=== PATIENT | female | born 1945 ===

== ENCOUNTER 2017-07-16 13:40 | Emergency (ER) | payer MEDICAID ==
[2017-07-16 14:33] VITALS: O2SAT 98; BMI 30.4
[2017-07-16] MEDS ORDERED: Morphine 4 mg/ml ISec IVP STA (15:12)
[2017-07-16] MEDS ORDERED: Sodium Chloride 0.9% 1,000 ML IV STA (15:12)
--- NOTE | 2017-07-16 15:18 | ED PDOC ---
Arrival/HPI - General Chief Complaint: Abdominal Pain Time Seen by Provider: 07/16/17 15:12 Historian: Patient, Family (daughter/daughter translating) - History of Present Illness Narrative History of Present Illness (Text): 07/16/17 15:15 pt p/w + ~ 5days onset of epigastric pain, radiating to mid back and up to pt's back/shoulder regions at times; pt states abd pain is constant with waxing/ waning behavior, at most pain is rated > 10/10; pt + poor appetite, + severe nausea and multiple episodes of vomiting since 3 days ago, vomited ~ 3-4 times daily; pt states + feeling subjective warmth/cold, no sweats, no cp/sob/ palpitations, no numbness/tingling, no urinary/bowel changes, no gross bleeding ; pt is here for further eval; pt's without other complaints pt denied fall/trauma/sick contact, no travel coordinator states her current abd pain does not feel like her prior GB disease pain pt had seen GI, had endoscopy/colonoscopy, dx with H Pylori was txt with abx PCP: dr Joe Bunch Time/Duration: < week Symptom Onset: Sudden Symptom Course: Unchanged, Worsening Quality: Cramping Severity Level: 10, Severe Activities at Onset: Rest Context: Home Past Medical History - Provider Review Nursing Documentation Reviewed: Yes - Travel History Have you recently traveled outside [place] w/in the past 3 mons?: No - Past History Past History: No Previous - Infectious Disease Hx of Infectious Diseases: None - Tetanus Immunization Tetanus Immunization: Unknown - Cardiac Hx Cardiac Disorders: Yes Hx Hypertension: Yes - Pulmonary Hx Respiratory Disorders: No - Neurological Hx Neurological Disorder: Yes Hx Dizziness: Yes Other/Comment: FORGETFUL - HEENT Hx HEENT Disorder: Yes Hx Cataracts: Yes - Renal Hx Renal Disorder: No - Endocrine/Metabolic Hx Endocrine Disorders: Yes Hx Hypothyroidism: Yes - Hematological/Oncological Hx Blood Disorders: Yes Hx Anemia: Yes Hx Blood Transfusions: No Hx Cancer: Yes (gallbladder) - Integumentary Hx Dermatological Disorder: No - Musculoskeletal/Rheumatological Hx Musculoskeletal Disorders: Yes Hx Arthritis: Yes Hx Falls: No Hx Fractures: No - Gastrointestinal Hx Gastrointestinal Disorders: Yes Hx Gall Bladder Disease: Yes Hx Gastritis: Yes Hx Gastroesophageal Reflux: Yes Hx Hemorrhoids: Yes Hx Liver Failure: Yes (LIVER RESECTION) Other/Comment: gallbladder ca - Genitourinary/Gynecological Hx Genitourinary Disorders: Yes Hx Urinary Tract Infection: Yes Other/Comment: CYSTOCELE WITH INCONTINENCE - Psychiatric Hx Psychophysiologic Disorder: Yes Hx Anxiety: Yes Hx Depression: Yes Hx Emotional Abuse: No Hx Physical Abuse: No Hx Substance Use: No - Past Surgical History Past Surgical History: No Previous - Surgical History Hx Cataract Extraction: Yes (both eyes.) Hx Cholecystectomy: Yes Hx Liver Transplant: No Hx Tubal Ligation: Yes Other/Comment: partial hepatolectomy. COLPORRHAPHY WITH SLING - Anesthesia Hx Anesthesia: Yes Hx Anesthesia Reactions: No Hx Malignant Hyperthermia: No - Suicidal Assessment Feels Threatened In Home Enviroment: No Family/Social History - Physician Review Nursing Documentation Reviewed: Yes Family/Social History: No Known Family HX Smoking Status: Never Smoked Hx Alcohol Use: No Hx Substance Use: No Hx Substance Use Treatment: No Allergies/Home Meds Allergies/Adverse Reactions: Allergies aspirin Allergy (Verified 07/16/17 14:33) SWELLING Home Medications: Home Meds Medication Instructions Recorded Confirmed Levothyroxine Sodium 50 mcg PO DAILY 02/15/14 07/16/17 amLODIPine [Norvasc] 5 mg PO DAILY 02/15/14 07/16/17 Donepezil HCl [Aricept Odt] 5 mg PO DAILY 06/13/15 07/16/17 Atorvastatin [Lipitor] 40 mg PO DAILY 08/26/15 07/16/17 Valsartan [Diovan] 320 mg PO DAILY 08/26/15 07/16/17 Zolpidem [Ambien] 5 mg PO HS PRN 08/26/15 07/16/17 Calcium/D3/Argnin/Inos/Silicon 600 mg PO DAILY 03/23/16 07/16/17 [Bone Density Calcium + D Cplt] Citalopram [celeXA] 10 mg PO DAILY 03/23/16 07/16/17 Gabapentin [Neurontin] 300 mg PO DAILY 12/13/16 07/16/17 Montelukast [Singulair] 10 mg PO HS 12/13/16 07/16/17 Review of Systems - Review of Systems Constitutional: Fatigue Eyes: Normal ENT: Normal Respiratory: Normal Cardiovascular: Normal Gastrointestinal: Abdominal Pain, Nausea, Vomiting, Appetite Changes. absent: Diarrhea Genitourinary Female: Normal Musculoskeletal: Normal Skin: Normal Neurological: Normal Endocrine: Normal Hemo/Lymphatic: Normal Psychiatric: Normal Physical Exam Vital Signs Reviewed: Yes Vital Signs Temp Pulse Resp BP Pulse Ox 07/16/17 14:30 98.3 F 63 16 128/79 98 Temperature: Afebrile Blood Pressure: Normal Pulse: Regular Respiratory Rate: Normal Appearance: Positive for: Well-Appearing, Other (uncomfortable, mild distress due to pain, alert/awake, GCS = 15, oriented x 3, cooperative, follows command with ease) Pain Distress: Mild Mental Status: Positive for: Alert and Oriented X 3 - Systems Exam Head: Present: Atraumatic, Normocephalic Pupils: Present: PERRL, Other (no photophobia, sclera anicteric, no nystagmus) Extroacular Muscles: Present: EOMI Conjunctiva: Present: Normal Ears: Present: Normal Mouth: Present: Dry, Normal Teeth, Other (mild dry oral mucosa, intact dentitions, no drooling/stridor, no exudate/lesions, no dysphonia) Pharnyx: Present: Normal Nose (External): Present: Atraumatic Nose (Internal): Present: Normal Inspection Neck: Present: Normal Range of Motion, Trachea Midline. No: MIDLINE TENDERNESS Respiratory/Chest: Present: Clear to Auscultation, Good Air Exchange, Other ( CTA b/l, no w/r/r, no accessory muscle use noted, no tachypenia) Cardiovascular: Present: Regular Rate and Rhythm, Normal S1, S2. No: Murmurs Abdomen: Present: Tenderness, Normal Bowel Sounds, Other (well nourished female , + mid/epigastric region tenderness, no bass's sign, no mcburney's point tenderness, no masses/rebound/guarding/rigidity) Back: Present: Normal Inspection, Other (no midline tenderness, no step off). No: CVA Tenderness Upper Extremity: Present: Normal Inspection, Normal ROM, NORMAL PULSES, Neurovascularly Intact, Capillary Refill < 2s Lower Extremity: Present: Normal Inspection, NORMAL PULSES, Normal ROM, Neurovascularly Intact, Capillary Refill < 2 s Neurological: Present: GCS=15, CN II-XII Intact, Speech Normal Skin: Present: Warm, Normal Color, Other (cap refill < 1sec, no ulcerations, no petechiae). No: Rashes Psychiatric: Present: Alert, Oriented x 3 Medical Decision Making ED Course and Treatment: 07/16/17 15:21 Impression: epigastric pain i have consider all the differential diagnosis regarding pt's chief medical complaints/clinical findings, including but are not limited to: epigastric pain , r/o free air, r/o pancreatitis, r/o choledocholethiasis, unlikely bowel dz, ? pna; unlikely cards pathology A/P: epigastric pain - labs - iv - xray - ct - ua - observe - supportive care 07/16/17 [address] results pt is feeling improved, stating abd pain is much more tolerable pt is hungry pt tolerated po 20:00 pt is made aware of her medical results pt is encouraged bland diet pt is encouraged fluids pt will f/u as directed pt will be discharged home Re-evaluation Time: 20:00 Reassessment Condition: Improved - Lab Interpretations Lab Results: 07/16/17 15:20 07/16/17 15:20 Lab Results 07/16/17 15:20: Sodium 141, Potassium 4.7, Chloride 102, Carbon Dioxide 29, Anion Gap 15, BUN 16, Creatinine 0.9, Est GFR ( Amer) > 60, Est GFR (Non- Af Amer) > 60, Random Glucose 105, Calcium 10.4, Total Bilirubin 0.4, AST 34, ALT 42, Alkaline Phosphatase 59, Troponin I < 0.01, Total Protein 8.0, Albumin 4.6, Globulin 3.4, Albumin/Globulin Ratio 1.3, Lipase 263 07/16/17 15:20: PT 10.9, INR 0.96, APTT 31.5 07/16/17 15:20: WBC 7.8 D, RBC 4.65, Hgb 14.7, Hct 44.3, MCV 95.3, MCH 31.6, MCHC 33.2, RDW 12.7, Plt Count 184, MPV 11.2 H, Gran % 63.7, Lymph % (Auto) 24.8 , Mathews % (Auto) 7.7 H, Eos % (Auto) 3.5, Baso % (Auto) 0.3, Gran # 4.98, Lymph # (Auto) 1.9, Mathews # (Auto) 0.6, Eos # (Auto) 0.3, Baso # (Auto) 0.02 I have reviewed the lab results: Yes Interpretation: All labs normal - RAD Interpretation Narrative RAD Interpretations (Text): 07/16/17 18:17 CXR: NAD, as read by me 07/16/17 20:20 CT Scan ABD PELVIS IV CONTRAST ONLY Exam Date: 07/16/17 This imaging exam was performed at [facility] EXAM: CT Abdomen and Pelvis With Intravenous Contrast EXAM DATE/TIME: 07/16/2017 3:13 PM CLINICAL HISTORY: 71 years old, female; Pain; Abdominal pain; Epigastric; Prior surgery; Surgery date: 6+ months; Surgery type: HX liver resection, HX cholecystectomy, HX tubal ligation; Patient HX: HX gallbladder ca; Additional info: Epigastric pain x 5 days, n/v, HX of gb surgery TECHNIQUE: Axial computed tomography images of the abdomen and pelvis with intravenous contrast. All CT scans at this facility use one or more dose reduction techniques, viz.: automated exposure control; ma/kV adjustment per patient size (including targeted exams where dose is matched to indication; i.e. head); or iterative reconstruction technique. Coronal and sagittal reformatted images were created and reviewed. CONTRAST: 100 mL of omnipaque 350 administered intravenously. COMPARISON: Prior CT abdomen and pelvis of 2017-04-06 FINDINGS: LOWER THORAX: Heart again appears moderately enlarged. ABDOMEN: LIVER: Fatty infiltration of the liver. GALLBLADDER AND BILE DUCTS: Gallbladder is not seen, and there is a reported history of cholecystectomy. No evidence of significant biliary ductal dilatation. PANCREAS: No CT evidence of acute pancreatitis. SPLEEN: No acute abnormality of the spleen identified. ADRENALS: No acute abnormality of the adrenal glands identified. KIDNEYS AND URETERS: Left renal scarring. Incidental multiple fluid density left renal lesions, all measuring less than 10 mm. Consistent with the [employer]?s Incidental Findings Committee Report (J Am Eduar Radiol 2010): Unless the patient?s specific circumstances suggest otherwise, any cystic kidney lesion less than 1.0 cm not otherwise characterized in this report as possessing suspicious or indeterminate imaging features is/are highly likely to be benign and do not require follow-up imaging or biopsy. No evidence of hydroureteronephrosis. STOMACH AND BOWEL: Focal wall thickening of the distal stomach, suspicious for focal gastritis versus artifact from incomplete gastric distention. Retained stool noted throughout the colon. Otherwise, no significant abnormality of the bowel is identified. No evidence of gastric dilatation. No evidence of bowel obstruction. APPENDIX: Appendix is seen, and is within normal limits in appearance. PELVIS: BLADDER: No acute abnormality of the bladder identified. REPRODUCTIVE: Small 1.8 cm left ovarian/adnexal cystic lesion, also seen on the prior exam. This has a benign appearance by CT. No followup is warranted based on the imaging findings, unless otherwise clinically indicated. No acute abnormality of the uterus identified. ABDOMEN and PELVIS: INTRAPERITONEAL SPACE: No evidence of free intraperitoneal air or fluid. BONES/JOINTS: Bony structures appear demineralized. SOFT TISSUES: No acute abnormality of the visualized soft tissues is seen. VASCULATURE: No evidence of abdominal aortic aneurysm. No evidence of periaortic hemorrhage. LYMPH NODES: No evidence of diffuse lymphadenopathy. IMPRESSION: - Wall thickening of the distal stomach, suspicious for focal gastritis. - Otherwise, no evidence of significant acute process. - See above for remaining findings. Dictated By: Mai Aquino MD Dictated Date/Time: 07/16/171947 Signed By: Mai Aquino MD Date Signed: 1948 Transcribed By: LIZBETH Transcribe Date/Time : 07/16/171947 Radiology Orders: 07/16/17 15:13 ABD & PELVIS IV CONTRAST ONLY [CT] Stat CHEST TWO VIEWS (PA/LAT) [RAD] Stat Staff [employer] Officer: ED Physician, Radiologist - EKG Interpretation EKG Interpretation (Text): 07/16/17 18:06 Sinus rhythm at 60 bpm, LAD, + ectopy, qs in leads V1-2, no st-t changes, ABNL EKG; unchanged compare with old EKG 03/2017 Interpreted by ED Physician: Yes Type: 12 lead EKG Comparison: Similar to previous EKG - Medication Orders Current Medication Orders: Sodium Chloride (Sodium Chloride 0.9%) 1,000 mls @ 100 mls/hr IV .Q10H STA Stop: 07/17/17 01:11 Last Admin: 07/16/17 15:28 Dose: 100 mls/hr eMAR Start Stop Document 07/16/17 15:28 GMI (Rec: 07/16/17 15:28 GMI [id number]) Intravenous Solution Start Date 07/16/17 Start Time 15:27 Discontinued Medications Famotidine (Pepcid) 20 mg IVP STAT STA Stop: 07/16/17 15:13 Last Admin: 07/16/17 15:27 Dose: 20 mg IVP Administration Document 07/16/17 15:27 GMI (Rec: 07/16/17 15:26 I [id number]) Charges for Administration # of IVP Administrations 1 Morphine Sulfate (Morphine) 4 mg IVP STAT STA Stop: 07/16/17 15:13 Last Admin: 07/16/17 15:26 Dose: 4 mg MAR Pain Assessment Document 07/16/17 15:26 GMI (Rec: 07/16/17 15:26 GMI [id number]) Pain Reassessment Is this a pain reassessment? Yes Presence of Pain Presence of Pain Yes Pain Scale Used Pain Scale Used Numeric Location Pain Location Body Site Abdomen Description Description Constant Intensity of Pain at present 8 Pain Behavior Facial Grimacing IVP Administration Document 07/16/17 15:26 GMI (Rec: 07/16/17 15:26 GMI [id number]) Charges for Administration # of IVP Administrations 1 Ondansetron HCl (Zofran Inj) 4 mg IVP STAT STA Stop: 07/16/17 15:13 Last Admin: 07/16/17 15:27 Dose: 4 mg IVP Administration Document 07/16/17 15:27 GMI (Rec: 07/16/17 15:27 GMI [id number]) Charges for Administration # of IVP Administrations 1 Disposition/Present on Arrival - Present on Arrival Any Indicators Present on Arrival: No History of DVT/PE: No History of Uncontrolled Diabetes: No Urinary Catheter: No History of Decub. Ulcer: No History Surgical Site Infection Following: None - Disposition Have Diagnosis and Disposition been Completed?: Yes Diagnosis: Gastritis, Epigastric abdominal pain Disposition: HOME/ ROUTINE Disposition Time: 20:12 Patient Plan: Discharge Condition: STABLE Discharge Instructions (ExitCare): Gastritis (DC), Nausea and Vomiting, Adult ( DC), [place] Diet Print Language: MACEDONIAN Additional Instructions: Make sure to see your doctor in 1-2 days make sure to see your Gastroenterologists next week BLAND DIET is encouraged DRINK PLENTY OF FLUIDS take your medications as prescribed RETURN TO ED IF worse pain, cant breath, persistent vomiting, high fever >101- 102 for hours, altered behavior, unable to urinate, heavy/persistent bleeding, passing out, chest pain, or other medical emergencies Prescriptions: Famotidine [Pepcid] 20 mg PO BID #30 tab Ondansetron ODT [Zofran ODT] 4 mg PO TID PRN #10 odt PRN Reason: Nausea/Vomiting oxyCODONE/Acetaminophen [Percocet 5/325 mg Tab] 1 ea PO QID PRN #12 tab PRN Reason: Pain, Moderate (4-7) Referrals: Eber Bunch MD [Primary Care Provider] - Follow up with primary Forms: [employer] ([place]ian)
[2017-07-16 15:32] LABS: BASO # 0.02 K/mm3 (0.0-2.0); BASO % 0.3 % (0.0-3.0); EOS # 0.3 (0.0-0.7); EOS % 3.5 % (1.5-5.0); GRAN # 4.98 (1.4-6.5); GRAN % 63.7 % (50.0-68.0); HEMOGLOBIN 14.7 g/dL (12.0-16.0); LYMPH # 1.9 (1.2-3.4); LYMPH % 24.8 % (22.0-35.0); MEAN CELL VOLUME 95.3 fl (80.0-105.0); MEAN CORPUSCULAR HEMOGLOBIN 31.6 pg (25.0-35.0); MEAN CORPUSCULAR HGB CONC 33.2 g/dl (31.0-37.0); MEAN PLATELET VOLUME 11.2 fl (7.0-11.0); MONO # 0.6 (0.1-0.6); MONO % 7.7 % (1.0-6.0); RBC 4.65 10^6/uL (3.5-6.1); RED CELL DISTRIBUTION WIDTH 12.7 % (11.5-14.5); WHITE BLOOD COUNT 7.8 10^3/ul (4.5-11.0)
[2017-07-16 15:46] LABS: INR 0.96 (0.93-1.08); PARTIAL THROMBOPLASTIN TIME 31.5 Seconds (25.1-36.5); PROTHROMBIN TIME 10.9 SECONDS (9.4-12.5)
[2017-07-16 15:54] LABS: ALB/GLOB RATIO 1.3 (1.1-1.8); ALBUMIN 4.6 g/dL (3.0-4.8); ALT/SGPT 42 U/L (7-56); AST/SGOT 34 U/L (14-36); BLOOD UREA NITROGEN 16 mg/dL (7-21); CALCIUM 10.4 mg/dL (8.4-10.5); GFR AFRICAN-AMERICAN > 60; GFR NON-AFRICAN AMERICAN > 60; LIPASE 263 U/L (23-300)
[2017-07-16 16:05] LABS: TROPONIN I < 0.01 ng/mL
[2017-07-16] MEDS ORDERED: Iohexol 350 MG/100 ML VIAL ONE (16:24)
--- NOTE | 2017-07-16 19:48 | CT ---
EXAM: CT Abdomen and Pelvis With Intravenous Contrast EXAM DATE/TIME: 07/16/2017 3:13 PM CLINICAL HISTORY: 71 years old, female; Pain; Abdominal pain; Epigastric; Prior surgery; Surgery date: 6+ months; Surgery type: HX liver resection, HX cholecystectomy, HX tubal ligation; Patient HX: HX gallbladder ca; Additional info: Epigastric pain x 5 days, n/v, HX of gb surgery TECHNIQUE: Axial computed tomography images of the abdomen and pelvis with intravenous contrast. All CT scans at this facility use one or more dose reduction techniques, viz.: automated exposure control; ma/kV adjustment per patient size (including targeted exams where dose is matched to indication; i.e. head); or iterative reconstruction technique. Coronal and sagittal reformatted images were created and reviewed. CONTRAST: 100 mL of omnipaque 350 administered intravenously. COMPARISON: Prior CT abdomen and pelvis of 2017-04-06 FINDINGS: LOWER THORAX: Heart again appears moderately enlarged. ABDOMEN: LIVER: Fatty infiltration of the liver. GALLBLADDER AND BILE DUCTS: Gallbladder is not seen, and there is a reported history of cholecystectomy. No evidence of significant biliary ductal dilatation. PANCREAS: No CT evidence of acute pancreatitis. SPLEEN: No acute abnormality of the spleen identified. ADRENALS: No acute abnormality of the adrenal glands identified. KIDNEYS AND URETERS: Left renal scarring. Incidental multiple fluid density left renal lesions, all measuring less than 10 mm. Consistent with the [employer]?s Incidental Findings Committee Report (J Am Eduar Radiol 2010): Unless the patient?s specific circumstances suggest otherwise, any cystic kidney lesion less than 1.0 cm not otherwise characterized in this report as possessing suspicious or indeterminate imaging features is/are highly likely to be benign and do not require follow-up imaging or biopsy. No evidence of hydroureteronephrosis. STOMACH AND BOWEL: Focal wall thickening of the distal stomach, suspicious for focal gastritis versus artifact from incomplete gastric distention. Retained stool noted throughout the colon. Otherwise, no significant abnormality of the bowel is identified. No evidence of gastric dilatation. No evidence of bowel obstruction. APPENDIX: Appendix is seen, and is within normal limits in appearance. PELVIS: BLADDER: No acute abnormality of the bladder identified. REPRODUCTIVE: Small 1.8 cm left ovarian/adnexal cystic lesion, also seen on the prior exam. This has a benign appearance by CT. No followup is warranted based on the imaging findings, unless otherwise clinically indicated. No acute abnormality of the uterus identified. ABDOMEN and PELVIS: INTRAPERITONEAL SPACE: No evidence of free intraperitoneal air or fluid. BONES/JOINTS: Bony structures appear demineralized. SOFT TISSUES: No acute abnormality of the visualized soft tissues is seen. VASCULATURE: No evidence of abdominal aortic aneurysm. No evidence of periaortic hemorrhage. LYMPH NODES: No evidence of diffuse lymphadenopathy. IMPRESSION: - Wall thickening of the distal stomach, suspicious for focal gastritis. - Otherwise, no evidence of significant acute process. - See above for remaining findings.
[2017-07-16 20:51] VITALS: BP 131/68; PULSE 60; RESP 17; TEMP 98.2
--- NOTE | 2017-07-17 08:40 | CARD ---
APPROVED REPORT EKG Measurement Heart [id number] [place] 150P [id number] <Conclusion> Sinus rhythm with PVC LAD IRBBB ASMI, new since 04/06/17 NSSTW changes
--- NOTE | 2017-07-17 09:51 | RAD ---
HISTORY: epigastric pain COMPARISON: Comparison made with chest radiograph 04/06/2017. TECHNIQUE: Chest PA and lateral FINDINGS: LUNGS: No active pulmonary disease. PLEURA: No significant pleural effusion identified. No pneumothorax apparent. CARDIOVASCULAR: Cardiomegaly. OSSEOUS STRUCTURES: No significant abnormalities. VISUALIZED UPPER ABDOMEN: Normal. OTHER FINDINGS: None. IMPRESSION: Cardiomegaly. No infiltrates seen.
== END 2017-07-16 20:51 | disposition home or self-care (01) ==
LOC: ED 13:40
DX: K29.70 Gastritis, unspecified, without bleeding (principal)
CPT/HCPCS: 71046; 74177; 80053; 83690; 84484; 85025; 85610; 85730; 93005; 96374; 96375; 99283; J2270; J2405; J7040; Q9967

== ENCOUNTER 2018-09-17 15:04 | Emergency (ER) | payer MEDICAID ==
[2018-09-17 15:04] VITALS: BMI 30.4
--- NOTE | 2018-09-17 15:21 | ED PDOC ---
Arrival/HPI <IgorAngelito - Last Filed: 09/17/18 17:50> - History of Present Illness Narrative History of Present Illness (Text): 09/17/18 15:19 Patient is a 73 year old female with past medical history of asthma, hypertension, hyperlipidemia, hypothyroidism, GERD, gallbladder neuroendocrine carcinoma s/p cholecystectomy presenting with chief complaint of shortness of breath which began about 4 days prior. Patient has been having multiple nighttime awakenings due to being short of breath. Also admits to productive cough with clear sputum and localized midsternal chest discomfort which is worsened with cough. Patient is exposed to secondhand smoke frequently. Denies fevers, chills, nausea, vomiting, abdominal pain, diarrhea, dysuria. Time/Duration: < week Symptom Onset: Sudden Symptom Course: Unchanged Severity Level: Moderate <Rima Leung - Last Filed: 09/17/18 18:34> - General Time Seen by Provider: 09/17/18 15:13 Past Medical History - Provider Review Nursing Documentation Reviewed: Yes - Past History Past History: No Previous - Infectious Disease Hx of Infectious Diseases: None - Tetanus Immunization Tetanus Immunization: Unknown - Reproductive Menopause: No - Cardiac Hx Cardiac Disorders: Yes Hx Hypertension: Yes - Pulmonary Hx Respiratory Disorders: No - Neurological Hx Neurological Disorder: Yes Hx Dizziness: Yes Other/Comment: FORGETFUL - HEENT Hx HEENT Disorder: Yes Hx Cataracts: Yes - Renal Hx Renal Disorder: No - Endocrine/Metabolic Hx Endocrine Disorders: Yes Hx Hypothyroidism: Yes - Hematological/Oncological Hx Blood Disorders: Yes Hx Anemia: Yes Hx Blood Transfusions: No Hx Cancer: Yes (gallbladder) - Integumentary Hx Dermatological Disorder: No - Musculoskeletal/Rheumatological Hx Musculoskeletal Disorders: Yes Hx Arthritis: Yes Hx Falls: No Hx Fractures: No - Gastrointestinal Hx Gastrointestinal Disorders: Yes Hx Gall Bladder Disease: Yes Hx Gastritis: Yes Hx Gastroesophageal Reflux: Yes Hx Hemorrhoids: Yes Hx Liver Failure: Yes (LIVER RESECTION) Other/Comment: gallbladder ca - Genitourinary/Gynecological Hx Genitourinary Disorders: Yes Hx Urinary Tract Infection: Yes Other/Comment: CYSTOCELE WITH INCONTINENCE - Psychiatric Hx Psychophysiologic Disorder: Yes Hx Anxiety: Yes Hx Depression: Yes Hx Emotional Abuse: No Hx Physical Abuse: No Hx Substance Use: No - Past Surgical History Past Surgical History: No Previous - Surgical History Hx Cataract Extraction: Yes (both eyes.) Hx Cholecystectomy: Yes Hx Liver Transplant: No Hx Tubal Ligation: Yes Other/Comment: partial hepatolectomy. COLPORRHAPHY WITH SLING - Anesthesia Hx Anesthesia: Yes Hx Anesthesia Reactions: No Hx Malignant Hyperthermia: No - Suicidal Assessment Feels Threatened In Home Enviroment: No <LeungBreanntramaine Villeda - Last Filed: 09/17/18 18:34> Family/Social History - Physician Review Nursing Documentation Reviewed: Yes Family/Social History: No Known Family HX Smoking Status: Never Smoked Hx Alcohol Use: No Hx Substance Use: No Hx Substance Use Treatment: No <Rima Leung - Last Filed: 09/17/18 18:34> Allergies/Home Meds <Angelito Costa - Last Filed: 09/17/18 17:50> <Rima Leung - Last Filed: 09/17/18 18:34> Allergies/Adverse Reactions: Allergies aspirin Allergy (Verified 07/16/17 14:33) SWELLING Home Medications: Home Meds Medication Instructions Recorded Confirmed Levothyroxine Sodium 50 mcg PO DAILY 02/15/14 07/16/17 amLODIPine [Norvasc] 5 mg PO DAILY 02/15/14 09/17/18 Donepezil HCl [Aricept Odt] 5 mg PO DAILY 06/13/15 07/16/17 Atorvastatin [Lipitor] 40 mg PO DAILY 08/26/15 07/16/17 Zolpidem [Ambien] 5 mg PO HS PRN 08/26/15 07/16/17 Calcium/D3/Argnin/Inos/Silicon 600 mg PO DAILY 03/23/16 07/16/17 [Bone Density Calcium + D Cplt] Citalopram [celeXA] 10 mg PO DAILY 03/23/16 07/16/17 Gabapentin [Neurontin] 300 mg PO DAILY 12/13/16 07/16/17 Montelukast [Singulair] 10 mg PO HS 12/13/16 07/16/17 Review of Systems - Physician Review All systems were reviewed & negative as marked: Yes - Review of Systems Respiratory: SOB, Cough, Wheezing Cardiovascular: Chest Pain Gastrointestinal: Normal Genitourinary Female: Normal <Rima Leung - Last Filed: 09/17/18 18:34> Physical Exam Vital Signs Temp Pulse Resp BP Pulse Ox 09/17/18 15:12 98.7 F 70 20 133/60 95 09/17/18 15:05 65 18 133/60 97 <Angelito Costa - Last Filed: 09/17/18 17:50> Vital Signs Reviewed: Yes Vital Signs Temp Pulse Resp BP Pulse Ox 09/17/18 15:12 98.7 F 70 20 133/60 95 Temperature: Afebrile Blood Pressure: Normal Pulse: Regular Respiratory Rate: Normal Appearance: Positive for: Non-Toxic Pain Distress: None Mental Status: Positive for: Alert and Oriented X 3 - Systems Exam Head: Present: Atraumatic, Normocephalic Pupils: Present: PERRL Extroacular Muscles: Present: EOMI Conjunctiva: Present: Normal Mouth: Present: Moist Mucous Membranes Pharnyx: Present: Normal Respiratory/Chest: Present: Wheezes. No: Respiratory Distress, Accessory Muscle Use Cardiovascular: Present: Regular Rate and Rhythm, Normal S1, S2 Abdomen: Present: Normal Bowel Sounds. No: Tenderness, Distention Lower Extremity: Present: Normal Inspection, NORMAL PULSES. No: Edema Neurological: Present: GCS=15, CN II-XII Intact, Speech Normal Skin: Present: Warm, Dry, Normal Color Lymphatic: No: Cervical Adenopathy Psychiatric: Present: Alert, Oriented x 3 <Rima Leung - Last Filed: 09/17/18 18:34> Medical Decision Making - RAD Interpretation Radiology Orders: 09/17/18 15:40 CHEST PORTABLE [RAD] Stat - EKG Interpretation EKG Interpretation (Text): 09/17/18 16:01 EKG reviewed: Atrial fibrillation at 66 bpm, nonspecific intraventricular cond uction delay, None sttw abn. Interpreted by ED Physician: Yes Type: 12 lead EKG - Medication Orders Current Medication Orders: Discontinued Medications Albuterol/Ipratropium (Duoneb 3 Mg/0.5 Mg (3 Ml) Ud) 3 ml IH STAT STA Stop: 09/17/18 15:41 Prednisone (Prednisone Tab) 60 mg PO STAT ONE Stop: 09/17/18 15:41 <Angelito Costa - Last Filed: 09/17/18 17:50> ED Course and Treatment: 09/17/18 15:57 Impression: 73 year old female with shortness of breath Plan: - CBC, CMP, BNP - Troponin, EKG - CXR - Duonebs - Prednisone - Reassess and disposition Prior Visits: Notes and results from previous visits were reviewed. Progress Notes: 09/17/18 17:24 Labs and imaging reviewed. Patient states she is feeling much better. Patient hemodynamically stable and optimized for discharge and follow up with PMD. Patient in agreement with plan of management. <Rima Leung - Last Filed: 09/17/18 18:34> - PA / DISTRIBUTION CENTER ADMINISTRATOR / Resident Statement MD/DO has reviewed & agrees with the documentation as recorded. - Scribe Statement The provider has reviewed the documentation as recorded by the Scribe Nelda Tenorio All medical record entries made by the Scribe were at my direction and personally dictated by me. I have reviewed the chart and agree that the record accurately reflects my personal performance of the history, physical exam, medical decision making, and the department course for this patient. I have also personally directed, reviewed, and agree with the discharge instructions and disposition. <Angelito Costa - Last Filed: 09/17/18 17:50> Disposition/Present on Arrival - Present on Arrival Any Indicators Present on Arrival: No - Disposition Have Diagnosis and Disposition been Completed?: Yes Disposition Time: 17:50 Patient Plan: Discharge <Angelito Costa - Last Filed: 09/17/18 17:50> - Present on Arrival History of DVT/PE: No History of Uncontrolled Diabetes: No Urinary Catheter: No History of Decub. Ulcer: No History Surgical Site Infection Following: None <Rima Leung - Last Filed: 09/17/18 18:34> - Disposition Diagnosis: Asthma exacerbation Disposition: HOME/ ROUTINE Condition: STABLE Discharge Instructions (ExitCare): Asthma, Adult (DC) Print Language: SPA Additional Instructions: return for any new or worsening symptoms. follow up with your primary care doctor as soon as possible. Prescriptions: Albuterol 0.5% [Albuterol 0.5% Inhal Felisa (2.5 mg/0.5 ml) UD] 0.25 ml IH Q4H #1 neb Benzonatate [Tessalon Perles] 100 mg PO TID PRN #15 sgl PRN Reason: Cough Prednisone [Deltasone] 20 mg PO DAILY 5 Days #10 tablet Referrals: Eber Bunch MD [Primary Care Provider] - Follow up with primary Forms: [employer] ([place])
[2018-09-17 15:25] VITALS: TEMP 98.7; O2SAT 95
[2018-09-17] MEDS ORDERED: Magnesium Sulfate 2 gm/50 ml 2 GM/50 ML BAG IVPB ONE (15:40)
[2018-09-17] MEDS ORDERED: Albuterol-Ipratrop 3 mg / 0.5 (3 ml) UD IH STA (15:40)
[2018-09-17 16:07] LABS: BASO # 0.03 K/mm3 (0.0-2.0); BASO % 0.5 % (0.0-3.0); EOS # 0.3 (0.0-0.7); HEMOGLOBIN 12.1 g/dL (12.0-16.0); LYMPH # 1.9 (1.2-3.4); LYMPH % 28.3 % (22.0-35.0); MEAN CELL VOLUME 96.4 fl (80.0-105.0); MEAN CORPUSCULAR HEMOGLOBIN 30.9 pg (25.0-35.0); MEAN CORPUSCULAR HGB CONC 32.1 g/dl (31.0-37.0); MEAN PLATELET VOLUME 11.8 fl (7.0-11.0); MONO % 15.5 % (1.0-6.0); RBC 3.91 10^6/uL (3.5-6.1); RED CELL DISTRIBUTION WIDTH 14.4 % (11.5-14.5); WHITE BLOOD COUNT 6.6 10^3/uL (4.5-11.0)
[2018-09-17 16:19] LABS: TROPONIN I < 0.01 ng/mL
[2018-09-17 16:22] LABS: ALB/GLOB RATIO 1.3 (1.1-1.8); ALBUMIN 3.9 g/dL (3.0-4.8); ALT/SGPT 28 U/L (7-56); AST/SGOT 33 U/L (14-36); B-TYPE NATRIURETIC PEPTIDE 542 pg/mL (0-450); BLOOD UREA NITROGEN 5 mg/dL (7-21); CALCIUM 8.6 mg/dL (8.4-10.5); GFR NON-AFRICAN AMERICAN > 60
[2018-09-17] MEDS ORDERED: guaiFENesin DM 200 mg-20 mg/10 ml UD PO ONE (17:24)
[2018-09-17 17:51] VITALS: BP 133/69; PULSE 65; RESP 18
--- NOTE | 2018-09-18 06:11 | RAD ---
Date of service: 09/17/2018 HISTORY: shortness of breath COMPARISON: Comparison is made with 07/16/2017 TECHNIQUE: 1 view obtained. FINDINGS: LUNGS: Mild pulmonary vascular congestion is suspected. PLEURA: Blunting of the right costophrenic angle is noted. CARDIOVASCULAR: Small aortic atherosclerotic calcification present. The cardiac silhouette is mildly enlarged P . OSSEOUS STRUCTURES: No significant abnormalities. VISUALIZED UPPER ABDOMEN: Normal. OTHER FINDINGS: None. IMPRESSION: Mild pulmonary vascular congestion. Correlate clinically for CHF.
--- NOTE | 2018-09-18 19:12 | CARD ---
APPROVED REPORT Date of service: 09/17/2018 EKG Measurement Heart [id number] <Conclusion> Normal sinus rhythm Left axis deviation Nonspecific intraventricular conduction delay Poor R wave progression in Precordial leads Abnormal ECG
== END 2018-09-17 18:05 | disposition home or self-care (01) ==
LOC: ED 15:04
DX: J45.901 Unspecified asthma with (acute) exacerbation (principal); E78.5 Hyperlipidemia, unspecified; E03.9 Hypothyroidism, unspecified; I10 Essential (primary) hypertension

== ENCOUNTER 2018-09-24 15:42 | Observation (INO) | payer MEDICAID ==
--- NOTE | 2018-09-24 17:15 | ED PDOC ---
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 Patient states since yesterday she has vomited more than 8 times. Patient states the pain is sharp and stabbing and intermittent located mostly epigastric and left upper quadrant. Patient denies diarrhea. Denies back pain. Denies shortness of breath at present time. Patient states she has a history of asthma and was seen in the emergency room 1 week ago for asthma exacerbation which finally improved 2 days ago. Patient states she has had decreased appetite for the past few days. Patient denies dysuria urinary frequency or urgency. No vaginal bleeding or discharge. No medications have been taken for pain at home. No other complaints Past Medical History - Provider Review Nursing Documentation Reviewed: Yes - Travel History Have you recently traveled outside [place] w/in the past 3 mons?: No - Past History Past History: No Previous - Infectious Disease Hx of Infectious Diseases: None - Tetanus Immunization Tetanus Immunization: Unknown - Reproductive Menopause: Yes - Cardiac Hx Cardiac Disorders: Yes Hx Hypertension: Yes - Pulmonary Hx Respiratory Disorders: No - Neurological Hx Neurological Disorder: Yes Hx Dizziness: Yes Other/Comment: FORGETFUL - HEENT Hx HEENT Disorder: Yes Hx Cataracts: Yes - Renal Hx Renal Disorder: No - Endocrine/Metabolic Hx Endocrine Disorders: Yes Hx Hypothyroidism: Yes - Hematological/Oncological Hx Blood Disorders: Yes Hx Anemia: Yes Hx Blood Transfusions: No Hx Cancer: Yes (gallbladder) - Integumentary Hx Dermatological Disorder: No - Musculoskeletal/Rheumatological Hx Musculoskeletal Disorders: Yes Hx Arthritis: Yes Hx Falls: No Hx Fractures: No - Gastrointestinal Hx Gastrointestinal Disorders: Yes Hx Gall Bladder Disease: Yes Hx Gastritis: Yes Hx Gastroesophageal Reflux: Yes Hx Hemorrhoids: Yes Hx Liver Failure: Yes (LIVER RESECTION) Other/Comment: gallbladder ca - Genitourinary/Gynecological Hx Genitourinary Disorders: Yes Hx Urinary Tract Infection: Yes Other/Comment: CYSTOCELE WITH INCONTINENCE - Psychiatric Hx Psychophysiologic Disorder: Yes Hx Anxiety: Yes Hx Depression: Yes Hx Emotional Abuse: No Hx Physical Abuse: No Hx Substance Use: No - Past Surgical History Past Surgical History: No Previous - Surgical History Hx Cataract Extraction: Yes (both eyes.) Hx Cholecystectomy: Yes Hx Liver Transplant: No Hx Tubal Ligation: Yes Other/Comment: partial hepatolectomy. COLPORRHAPHY WITH SLING - Anesthesia Hx Anesthesia: Yes Hx Anesthesia Reactions: No Hx Malignant Hyperthermia: No - Suicidal Assessment Feels Threatened In Home Enviroment: No Family/Social History - Physician Review Nursing Documentation Reviewed: Yes Family/Social History: Unknown Family HX Smoking Status: Never Smoked Hx Alcohol Use: No Hx Substance Use: No Hx Substance Use Treatment: No Allergies/Home Meds Allergies/Adverse Reactions: Allergies aspirin Allergy (Verified 09/24/18 15:56) SWELLING Home Medications: Home Meds Medication Instructions Recorded Confirmed Levothyroxine Sodium 50 mcg PO DAILY 02/15/14 09/24/18 amLODIPine [Norvasc] 5 mg PO DAILY 02/15/14 09/24/18 Donepezil HCl [Aricept Odt] 5 mg PO DAILY 06/13/15 09/24/18 Atorvastatin [Lipitor] 40 mg PO DAILY 08/26/15 09/24/18 Citalopram Hydrobromide [Celexa] 1 tab PO DAILY 09/24/18 09/24/18 Losartan [Cozaar] 100 mg PO DAILY 09/24/18 09/24/18 Omeprazole 40 mg PO DAILY 09/24/18 09/24/18 Review of Systems - Review of Systems Constitutional: Fatigue. absent: Fevers Respiratory: absent: SOB, Cough Cardiovascular: Chest Pain. absent: Palpitations Gastrointestinal: Abdominal Pain, Diarrhea, Nausea, Vomiting Genitourinary Female: absent: Dysuria, Frequency, Hematuria, Vaginal Bleeding, Vaginal Discharge Musculoskeletal: Arthralgias (right arm pain). absent: Back Pain, Neck Pain Skin: absent: Rash, Pruritis Neurological: absent: Headache, Dizziness Psychiatric: absent: Anxiety, Depression Physical Exam Vital Signs Reviewed: Yes Vital Signs Temp Pulse Resp BP Pulse Ox 09/24/18 15:49 97.4 F L 53 L 18 151/74 H 95 Temperature: Afebrile Blood Pressure: Hypertensive Pulse: Regular Respiratory Rate: Normal Appearance: Positive for: Well-Appearing, Non-Toxic, Comfortable Pain Distress: None Mental Status: Positive for: Alert and Oriented X 3 - Systems Exam Head: Present: Atraumatic Mouth: Present: Moist Mucous Membranes Respiratory/Chest: Present: Clear to Auscultation Cardiovascular: Present: Regular Rate and Rhythm Abdomen: Present: Tenderness (+ epigastric, ruq/ luq tenderness), Guarding. No: Distention, Rebound Back: Present: Normal Inspection. No: CVA Tenderness, Midline Tenderness, Paraspinal Tenderness Upper Extremity: Present: Normal ROM Lower Extremity: Present: Normal ROM Neurological: Present: GCS=15, Speech Normal Skin: Present: Warm, Dry, Normal Color. No: Rashes Psychiatric: Present: Alert Medical Decision Making ED Course and Treatment: 09/24/18 17:12 Patient is nontoxic well appearing with stable vital signs presenting with upper abdominal pain, nausea/vomiting/diarrhea. CBC: wnl CMP Wnl Lipase wnl EKG: Sinus bradycardia at [address] elevations, left axis deviation, QTC 400 trop; 0.02 BNP; elevated cxr; wnl Urinalysis wnL CAT scan: FINDINGS: LUNG BASES: The lung bases appear clear. No pleural effusions are seen. LIVER: Unremarkable. GALLBLADDER AND BILE DUCTS: The gallbladder appears within normal limits. No radioopaque gallstones are seen. No biliary ductal dilatation is evident. PANCREAS: Unremarkable. SPLEEN: Unremarkable. ADRENAL GLANDS: Unremarkable. KIDNEYS, URETERS, AND BLADDER: The kidneys appear within normal limits. There is no hydronephrosis or hydroureter. No urinary calculi are seen. STOMACH AND BOWEL: Unremarkable appearance of the stomach and bowel. No evidence of bowel obstruction. No evidence suggesting enteritis or colitis. APPENDIX: No evidence of acute appendicitis on CT examination. PERITONEUM: Small amount of pelvic free fluid. No free air. LYMPH NODES: No lymphadenopathy is evident. REPRODUCTIVE: Unremarkable as visualized. VASCULATURE: No evidence of abdominal aortic aneurysm. BONES: No aggressive appearing osseous lesion. No acute osseous pathology evident. IMPRESSION: Small amount of pelvic free fluid No additional acute intra-abdominal or pelvic abnormality. Electronically signed on Sep 24, 2018 6:17:45 PM EDT by: Lanie Cardenas M.D., Certified by [facility], Diagnostic Radiology Patient reassessment: pt resting comfortably. ASA not given as patient has allergic reaction to ASA. Discussed all results with patient in depth using line producer phone banker #; [phone] pts PMD is dr. corbett, will admit to hospitalist service. case discussed with dr. Bajwa; accepts obs admission to tele for Chest pain and abdominal pain, nausea/vomiting. Impression: chest pain, Abdominal pain, nausea/vomiting admit obs tele - RAD Interpretation Radiology Orders: 09/24/18 16:50 CHEST PORTABLE [RAD] Stat Disposition/Present on Arrival - Present on Arrival Any Indicators Present on Arrival: No History of DVT/PE: No History of Uncontrolled Diabetes: No Urinary Catheter: No History of Decub. Ulcer: No History Surgical Site Infection Following: None - Disposition Have Diagnosis and Disposition been Completed?: Yes Diagnosis: Abdominal pain, Chest pain, Elevated brain natriuretic peptide (BNP) level Disposition Time: 18:55 Patient Plan: Observation Patient Problems: Current Active Problems Problem Status Onset Abdominal pain Acute Chest pain Acute Elevated brain natriuretic peptide (BNP) level Acute Condition: FAIR Discharge Instructions (ExitCare): Chest Pain (ED) Forms: [employer] ([place])
--- NOTE | 2018-09-24 17:35 | RAD ---
Date of service: 09/24/2018 HISTORY: chest pain/abd pain, n/v COMPARISON: Chest radiograph dated 09/17/2018. TECHNIQUE: 1 view obtained. FINDINGS: LUNGS: No active pulmonary disease. PLEURA: No significant pleural effusion identified, no pneumothorax apparent. CARDIOVASCULAR: Aortic atherosclerotic calcifications. Cardiomediastinal silhouette stably enlarged. OSSEOUS STRUCTURES: Unchanged. VISUALIZED UPPER ABDOMEN: Normal. OTHER FINDINGS: None. IMPRESSION: No active disease.
[2018-09-24 17:36] LABS: BASO # 0.01 {null, K/mm3} (0.0-2.0); BASO % 0.1 % (0.0-3.0); HEMOGLOBIN 13.6 g/dL (12.0-16.0); LYMPH # 1.2 (1.2-3.4); LYMPH % 13.4 % (22.0-35.0); MEAN CELL VOLUME 95.9 fl (80.0-105.0); MEAN CORPUSCULAR HEMOGLOBIN 30.9 pg (25.0-35.0); MEAN CORPUSCULAR HGB CONC 32.2 g/dl (31.0-37.0); MEAN PLATELET VOLUME 11.5 fl (7.0-11.0); MONO # 0.2 (0.1-0.6); MONO % 2.2 % (1.0-6.0); PH,URINE 8.5 (4.7-8.0); RBC 4.4 {null, 10^6/uL} (3.5-6.1); RED CELL DISTRIBUTION WIDTH 13.9 % (11.5-14.5); URINE BILIRUBIN NEGATIVE (NEGATIVE); URINE BLOOD NEGATIVE (NEGATIVE); URINE GLUCOSE (UA) NEGATIVE (NEGATIVE); URINE LEUKOCYTE ESTERASE NEGATIVE Leu/uL (NEGATIVE); URINE PROTEIN NEGATIVE mg/dL (<30 mg/dL); URINE UROBILINOGEN 0.2 E.U./dL (<1 E.U./dL); WHITE BLOOD COUNT 8.8 {null, 10^3/uL} (4.5-11.0)
[2018-09-24 17:39] LABS: URINE APPEARANCE CLEAR (CLEAR); URINE COLOR YELLOW (YELLOW)
[2018-09-24 17:48] LABS: ALB/GLOB RATIO 1.4 (1.1-1.8); ALBUMIN 4.4 g/dL (3.0-4.8); ALT/SGPT 47 U/L (7-56); AST/SGOT 37 U/L (14-36); BLOOD UREA NITROGEN 9 mg/dL (7-21); CALCIUM 8.9 mg/dL (8.4-10.5); GFR NON-AFRICAN AMERICAN > 60
[2018-09-24 17:56] LABS: B-TYPE NATRIURETIC PEPTIDE 692 pg/mL (0-450); TROPONIN I 0.02 ng/mL
[2018-09-24] MEDS ORDERED: Iohexol 350 MG/100 ML VIAL ONE (17:58)
[2018-09-24] MEDS ORDERED: Morphine 2 mg/ml ISec IVP STA (18:33)
[2018-09-24] MEDS ORDERED: Sodium Chloride 0.9% 500 ML IV STA (18:34)
[2018-09-24] MEDS: Sodium Chloride 0.9% 500 ML IV SCH (19:29)
--- NOTE | 2018-09-24 20:10 | CP.PCM.HP ---
<Collins Walker - Last Filed: 09/24/18 21:41> History of Present Illness - History of Present Illness History of Present Illness: Collins Walker PGy1 - Internal Medicine [employer] - Hospitalist H&P CC: Abd pain/ Chest Pain Patient is a 73F w/ PMH of gallbladder CA, Asthma, HTN, HLD, Hypothyroid c/o N/V abd pain and chest pain. Patient report symptoms began 1 day ago; she reported 10 episodes of NBNB vomitus associated w/ epigastric abdominal pain. Pain is distributed in a band like pattern in the epigastric region w/o radiation into the back; Patient reports that the pain is a sharp stabbing sensation which comes and goes lasting approximately 2 hours. Patient reports that this is the first time she's experiencing these symptoms; denies pain w/ eating. She does however report a de creased appetite. In regards to chest pain, patient reports that pain is located on the R side of her chest w/ radiation into her right arm and right neck; patient complains that pain is worsened w/ walking an dimproved w/ sitting. She reports that she is fatigued throughout the day and does have complaints of HARRY. Patient states that at night she requires multiple pillows and sleeps in an inclined position. Does not complain of of cough, bloating/distention, or LE edema. Denies any diarrhea, constipation, palpitations, dizziness, lightheadedness, fevers chills. Remainder 12 system ROS negative. PMH: gallbladder CA, Asthma, HTN, HLD, Hypothyroid PSH: cholecystectomy, bladder surgery ALL: ASA - GI Upset - NO ANAPHYLAXIS Social: Denies smoking, drinking, illicit drugs FamHX: CAD in mother and father- both HomeRx: Norvasc 5 Daily, Lipitor 40 daily, Celexa 20 daily, Donepezil 5 daily, synthroid 50mcg daily, cozaar 100 daily Present on Admission - Present on Admission Any Indicators Present on Admission: No Review of Systems - Review of Systems All systems: reviewed and no additional remarkable complaints except Review of Systems: as per HPI Past Patient History - Infectious Disease Hx of Infectious Diseases: None - Tetanus Immunizations Tetanus Immunization: Unknown - Past Medical History & Family History Past Medical History?: Yes - Past Social History Smoking Status: Never Smoked - CARDIAC Hx Cardiac Disorders: Yes Hx Hypertension: Yes - PULMONARY Hx Respiratory Disorders: No - NEUROLOGICAL Hx Neurological Disorder: Yes Hx Dizziness: Yes Other/Comment: FORGETFUL - HEENT Hx HEENT Problems: Yes Hx Cataracts: Yes - RENAL Hx Chronic Kidney Disease: No - ENDOCRINE/METABOLIC Hx Endocrine Disorders: Yes Hx Hypothyroidism: Yes - HEMATOLOGICAL/ONCOLOGICAL Hx Blood Disorders: Yes Hx Anemia: Yes Hx Blood Transfusions: No Hx Cancer: Yes (gallbladder) - INTEGUMENTARY Hx Dermatological Problems: No - MUSCULOSKELETAL/RHEUMATOLOGICAL Hx Musculoskeletal Disorders: Yes Hx Arthritis: Yes Hx Falls: No Hx Fractures: No - GASTROINTESTINAL Hx Gastrointestinal Disorders: Yes Hx Gall Bladder Disease: Yes Hx Gastritis: Yes Hx Gastroesophageal Reflux: Yes Hx Hemorrhoids: Yes Hx Liver Failure: Yes (LIVER RESECTION) Other/Comment: gallbladder ca - GENITOURINARY/GYNECOLOGICAL Hx Genitourinary Disorders: Yes Hx Urinary Tract Infection: Yes Other/Comment: CYSTOCELE WITH INCONTINENCE - PSYCHIATRIC Hx Psychophysiologic Disorder: Yes Hx Anxiety: Yes Hx Depression: Yes Hx Emotional Abuse: No Hx Physical Abuse: No Hx Substance Use: No - SURGICAL HISTORY Hx Cataract Extraction: Yes (both eyes.) Hx Cholecystectomy: Yes Hx Liver Transplant: No Hx Tubal Ligation: Yes Other/Comment: partial hepatolectomy. COLPORRHAPHY WITH SLING - ANESTHESIA Hx Anesthesia: Yes Hx Anesthesia Reactions: No Hx Malignant Hyperthermia: No Meds Allergies/Adverse Reactions: Allergies Allergy/AdvReac Type Severity Reaction Status Date / Time aspirin Allergy SWELLING Verified 09/24/18 15:56 Physical Exam - Constitutional Appears: Well, Non-toxic, No Acute Distress - Head Exam Head Exam: ATRAUMATIC, NORMOCEPHALIC - Eye Exam Eye Exam: EOMI, Normal appearance, PERRL - Respiratory Exam Respiratory Exam: Clear to Auscultation Bilateral, NORMAL BREATHING PATTERN - Cardiovascular Exam Cardiovascular Exam: RRR. absent: Systolic Murmur - GI/Abdominal Exam GI & Abdominal Exam: Soft, Tenderness (Epigastric tenderness) Additional comments: No rebound, guarding, or bass's sign - Back Exam Back exam: absent: CVA tenderness (L), CVA tenderness (R) - Neurological Exam Neurological exam: Alert, Normal Gait, Oriented x3 - Psychiatric Exam Psychiatric exam: Normal Affect, Normal Mood - Skin Skin Exam: Dry, Intact, Normal Color, Warm Results - Vital Signs Recent Vital Signs: Last Vital Signs Temp 97.4 F L 09/24/18 15:49 Pulse 52 L 09/24/18 18:22 Resp 15 09/24/18 18:22 BP 133/60 09/24/18 18:22 Pulse Ox 96 09/24/18 18:22 - Labs Result Diagrams: 09/24/18 17:00 09/24/18 17:00 Labs: Laboratory Results - last 24 hr 09/24/18 09/24/18 09/24/18 17:00 17:00 17:00 WBC 8.8 D RBC 4.40 Hgb 13.6 Hct 42.2 MCV 95.9 MCH 30.9 MCHC 32.2 RDW 13.9 Plt Count 212 MPV 11.5 H Neut % (Auto) 84.3 H Lymph % (Auto) 13.4 L Willacy % (Auto) 2.2 Eos % (Auto) 0.0 L Baso % (Auto) 0.1 Lymph # (Auto) 1.2 Willacy # (Auto) 0.2 Eos # (Auto) 0.0 Baso # (Auto) 0.01 Absolute Neuts (auto) 7.39 H Sodium 140 Potassium 4.0 Chloride 102 Carbon Dioxide 31 Anion Gap 11 BUN 9 Creatinine 0.6 L Est GFR ( Amer) > 60 Est GFR (Non-Af Amer) > 60 Random Glucose 207 H Calcium 8.9 Total Bilirubin 0.5 AST 37 H ALT 47 Alkaline Phosphatase 74 Lactate Dehydrogenase 708 H Total Creatine Kinase 45 Troponin I 0.02 D NT-Pro-B Natriuret Pep 692 H Total Protein 7.6 Albumin 4.4 Globulin 3.2 Albumin/Globulin Ratio 1.4 Urine Color Yellow Urine Appearance Clear Urine pH 8.5 Ur Specific Baxter 1.015 Urine Protein Negative Urine Glucose (UA) Negative Urine Ketones Negative Urine Blood Negative Urine Nitrate Negative Urine Bilirubin Negative Urine Urobilinogen 0.2 Ur Leukocyte Esterase Negative Assessment & Plan - Assessment and Plan (Free Text) Assessment: Patient is a 73F w/ PMH of gallbladder CA, Asthma, HTN, HLD, Hypothyroid c/o N/V abd pain and chest pain. Admitted for ACS r/o and management of pain. Plan: ACS r/o Heart Score = 3 ; MACE 0.9-1.7% EKG sinus winston, non specific intraventricular conduction delay; HR 51; no ST/T wave abnormalities Prev Regular Stress Test 2013 - Within Normal Limits; no ischemia Trop 0.02 Trend Trop x3 Repeat EKG in AM Lipid Profile wnl A1C Pending TSH Pending No ASA 2/2 "allergy" Resume Lipitor BNP Elevated - will get echo Cardio Consulted, appreciate reccs Abd Pain - R/o Pancreatitis CTAP wnl LDH elevated; No WBC elevation Lipase pending CLD ; IVF NS conservative - 60cc/hr Morphin 1 Q4 PRN Severe pain Acetaminophen 650mg Q4 Mild pain Zofran Q4 PRN Protonix IVP 40 Daily Hx Hypothyroid TSH Pending Levothyroxine 50mcg Hx HTN Resume home: Norvasc 5 daily, Cozaar 100 daily DVT PPX: Lovenox GI PPX: Protonix Patient was seen examined discussed w/ attending Dr. Garett Walker DO PGY1 - Internal Medicine [employer] - Date & Time Date: 09/24/18 Time: 22:06 <Moris Bajwa - Last Filed: 09/27/18 04:20> Results - Vital Signs Recent Vital Signs: Last Vital Signs Temp 97.9 F 09/25/18 23:49 Pulse 54 L 09/26/18 14:00 Resp 18 09/25/18 23:49 BP 148/69 09/26/18 13:13 Pulse Ox 94 L 09/25/18 23:49 - Labs Result Diagrams: 09/26/18 07:00 09/26/18 07:00 Labs: Laboratory Results - last 24 hr 09/26/18 09/26/18 07:00 07:00 WBC 7.6 RBC 4.34 Hgb 13.3 Hct 41.5 MCV 95.6 MCH 30.6 MCHC 32.0 RDW 13.7 Plt Count 214 MPV 11.4 H Neut % (Auto) 51.7 Lymph % (Auto) 35.8 H Willacy % (Auto) 10.0 H Eos % (Auto) 2.0 Baso % (Auto) 0.5 Lymph # (Auto) 2.7 Willacy # (Auto) 0.8 H Eos # (Auto) 0.2 Baso # (Auto) 0.04 Absolute Neuts (auto) 3.92 Sodium 138 Potassium 3.8 Chloride 102 Carbon Dioxide 30 Anion Gap 10 BUN 7 Creatinine 0.7 Est GFR ( Amer) > 60 Est GFR (Non-Af Amer) > 60 Random Glucose 81 Calcium 8.1 L Total Bilirubin 0.5 AST 35 ALT 38 Alkaline Phosphatase 67 Total Protein 6.8 Albumin 3.8 Globulin 3.0 Albumin/Globulin Ratio 1.3 Attending/Attestation - Attestation I have personally seen and examined this patient.: Yes I have fully participated in the care of the patient.: Yes I have reviewed all pertinent clinical information: Yes
[2018-09-24] MEDS ORDERED: Morphine 2 mg/ml ISec IVP PRN (20:48)
[2018-09-24 21:25] LABS: HDL CHOLESTEROL 73 mg/dL (29-60); LIPASE 177 U/L (23-300)
[2018-09-24 21:36] LABS: LDL CHOLESTEROL 60 mg/dL (0-129)
[2018-09-25 02:26] VITALS: BMI 41.3
[2018-09-25] MEDS: Sodium Chloride 0.9% 500 ML IV SCH ×2 (06:13→13:32)
[2018-09-25 07:19] LABS: BASO # 0.02 {null, K/mm3} (0.0-2.0); BASO % 0.2 % (0.0-3.0); EOS % 0.4 % (1.5-5.0); HEMOGLOBIN 12.8 g/dL (12.0-16.0); LYMPH # 3.2 (1.2-3.4); LYMPH % 34.2 % (22.0-35.0); MEAN CORPUSCULAR HEMOGLOBIN 30.3 pg (25.0-35.0); MEAN CORPUSCULAR HGB CONC 31.6 g/dl (31.0-37.0); MEAN PLATELET VOLUME 11.7 fl (7.0-11.0); MONO # 0.9 (0.1-0.6); MONO % 9.8 % (1.0-6.0); RBC 4.22 {null, 10^6/uL} (3.5-6.1); WHITE BLOOD COUNT 9.3 {null, 10^3/uL} (4.5-11.0)
[2018-09-25 07:25] LABS: TROPONIN I 0.02 ng/mL
[2018-09-25 07:26] LABS: ALB/GLOB RATIO 1.3 (1.1-1.8); ALT/SGPT 41 U/L (7-56); AST/SGOT 34 U/L (14-36); BLOOD UREA NITROGEN 8 mg/dL (7-21); CALCIUM 8.5 mg/dL (8.4-10.5); GFR NON-AFRICAN AMERICAN > 60
[2018-09-25] MEDS: Levothyroxine 50 MCG TAB PO SCH (08:35)
--- NOTE | 2018-09-25 08:54 | CT ---
Date of service: 09/24/2018 PROCEDURE: CT Abdomen and Pelvis with contrast HISTORY: abd pain COMPARISON: 07/16/2017 TECHNIQUE: Contrast dose: 100 mL Omnipaque 350 Radiation dose: Total exam DLP = 784.38 mGy-cm. This CT exam was performed using one or more of the following dose reduction techniques: Automated exposure control, adjustment of the mA and/or kV according to patient size, and/or use of iterative reconstruction technique. FINDINGS: LOWER THORAX: Unremarkable. LIVER: Unremarkable. No gross lesion or ductal dilatation. GALLBLADDER AND BILE DUCTS: Status post cholecystectomy PANCREAS: Unremarkable. No gross lesion or ductal dilatation. SPLEEN: Unremarkable. ADRENALS: Unremarkable. No mass. KIDNEYS AND URETERS: Unremarkable. No hydronephrosis. No solid mass. VASCULATURE: Unremarkable. No aortic aneurysm. There is atherosclerotic calcification of the abdominal aorta. BOWEL: Unremarkable. No obstruction. No gross mural thickening. APPENDIX: Normal appendix. PERITONEUM: Small amount of fluid in the pelvis common nonspecific. LYMPH NODES: Unremarkable. No enlarged lymph nodes. BLADDER: Unremarkable. REPRODUCTIVE: Unremarkable uterus BONES: No acute fracture. OTHER FINDINGS: None. IMPRESSION: Small amount of fluid in pelvis common nonspecific. No additional abnormality. Status post cholecystectomy. The preliminary findings for this examination were reported by [facility] at 6:17 p.m. on 09/24/2018. There is concurrence of this report with the preliminary findings.
[2018-09-25] MEDS: Enoxaparin 40 mg Syringe SC SCH (09:22)
[2018-09-25] MEDS ORDERED: Potassium Chloride 20 mEq ER Tab PO ONE (09:23)
--- NOTE | 2018-09-25 09:38 | CARD ---
APPROVED REPORT Date of service: 09/24/2018 EKG Measurement Heart [id number] <Conclusion> Sinus bradycardia Left axis deviation Nonspecific intraventricular conduction delay Abnormal ECG
[2018-09-25] MEDS ORDERED: DONEPEZIL HCL 5 MG PO SCH (10:00)
--- NOTE | 2018-09-25 10:10 | CARD ---
APPROVED REPORT Date of service: 09/25/2018 EKG Measurement Heart [id number] 172P [id number] <Conclusion> Marked sinus bradycardia Left axis deviation Nonspecific intraventricular conduction delay Abnormal ECG
[2018-09-25] MEDS: POLYETHYLENE GLYCOL 3350 17 GM/Dose PACKET PO SCH ×2 (11:41→17:04)
--- NOTE | 2018-09-25 12:17 | CP.PCM.PN ---
<Froy Goel - Last Filed: 09/25/18 12:12> Subjective - Date & Time of Evaluation Date of Evaluation: 09/25/18 Time of Evaluation: 12:13 - Subjective Subjective: Froy Goel, PGY-1, Internal Medicine Progress Note for Dr. Willingham Patient seen and evaluated at bedside. Patient had no acute overnight events. Patient continues to complain of epigastric pain and nausea but denies any episodes of vomiting overnight. Patient also reports chest pain radiating to the right arm. Patient denies shortness of breath, change in bowel movements, dysuria, hematuria. 12-point ROS was unremarkable except for what was mentioned above. Objective - Vital Signs/Intake and Output Vital Signs (last 24 hours): Temp Pulse Resp BP Pulse Ox 98.3 F 47 L 20 153/80 H 95 09/25/18 06:00 09/25/18 10:00 09/25/18 06:00 09/25/18 09:23 09/25/18 06:00 Intake and Output: 09/25/18 09/25/18 06:59 18:59 Intake Total 1080 Balance 1080 - Medications Medications: Current Medications Acetaminophen (Tylenol 325mg Tab) 650 mg PO Q4 PRN PRN Reason: Fever >100.4 F Amlodipine Besylate (Norvasc) 5 mg PO DAILY [facility] Last Admin: 09/25/18 09:23 Dose: 5 mg Atorvastatin Calcium (Lipitor) 40 mg PO DAILY [facility] Last Admin: 09/25/18 09:23 Dose: 40 mg Citalopram Hydrobromide (Celexa) 20 mg PO DAILY [facility] Last Admin: 09/25/18 09:25 Dose: 20 mg Docusate Sodium (Colace) 100 mg PO DAILY [facility] Last Admin: 09/25/18 11:40 Dose: Not Given Enoxaparin Sodium (Lovenox) 40 mg SC DAILY [facility]; Protocol Last Admin: 09/25/18 09:22 Dose: 40 mg Sodium Chloride (Sodium Chloride 0.9%) 500 mls @ 60 mls/hr IV .Q8H20M [facility] Last Admin: 09/25/18 06:13 Dose: 60 mls/hr Levothyroxine Sodium (Synthroid) 50 mcg PO ACB [facility] Last Admin: 09/25/18 08:35 Dose: 50 mcg Losartan Potassium (Cozaar) 100 mg PO DAILY [facility] Last Admin: 09/25/18 09:24 Dose: 100 mg Morphine Sulfate (Morphine) 1 mg IVP Q4H PRN PRN Reason: Pain, severe (8-10) Ondansetron HCl (Zofran Inj) 4 mg IVP Q4H PRN PRN Reason: Nausea/Vomiting Last Admin: 09/25/18 09:39 Dose: 4 mg Pantoprazole Sodium (Protonix Inj) 40 mg IVP DAILY [facility] Last Admin: 09/25/18 09:22 Dose: 40 mg Polyethylene Glycol (Miralax) 17 gm PO BID [facility] Last Admin: 09/25/18 11:41 Dose: Not Given - Labs Labs: 09/25/18 06:30 09/25/18 06:30 - Constitutional Appears: Well, Non-toxic, No Acute Distress - Head Exam Head Exam: ATRAUMATIC, NORMAL INSPECTION, NORMOCEPHALIC - Eye Exam Eye Exam: EOMI, PERRL - ENT Exam ENT Exam: Mucous Membranes Moist - Neck Exam Neck Exam: Full ROM, Normal Inspection - Respiratory Exam Respiratory Exam: Clear to Ausculation Bilateral, NORMAL BREATHING PATTERN - Cardiovascular Exam Cardiovascular Exam: REGULAR RHYTHM, RRR, +S1, +S2. absent: Clicks, Gallop, Rubs - GI/Abdominal Exam GI & Abdominal Exam: Soft, Tenderness (diffuse), Normal Bowel Sounds. absent: Distended, Firm, Guarding - Extremities Exam Extremities Exam: Full ROM, Normal Capillary Refill, Normal Inspection - Neurological Exam Neurological Exam: Alert, Awake, CN II-XII Intact, Oriented x3 - Skin Skin Exam: Dry, Intact, Normal Color Assessment and Plan - Assessment and Plan (Free Text) Assessment: 73 year old female with past medical history of gallbladder cancer, gastritis, asthma, hypertension, hyperlipidemia, hypothyroidism presented with nausea, vomiting, abdominal pain, and chest pain. Patient was admitted for ACS rule out and epigastric pain likely secondary to gastritis Plan: Chest pain with ACS rule out -EKGx2: sinus bradycardia with heart rate of 49 on repeat EKG. Patient had sinus rhythm with heart rate of 66 on prior admission -Troponinx3: 0.02,0.01,0.02 -Last stress test in 2013 showed no ischemia -Lipid profile within normal limits -HgbA1c: 6.6 -TSH: 1.47 -Hold ASA secondary to allergy -Continue with lipitor, cozaar -Echocardiogram ordered for mildly elevated BNP. Will follow up results -Patient scheduled for stress test to rule out ischemia Abdominal pain 2/2 to likely gastritis -CT Abdomen and Pelvis 09/24: shows mild edema around pelvis -Patient is afebrile and has no leukocytosis -Lipase unremarkable -No lactic acidosis present. -Patient does not fulfill 2 of 3 criteria for pancreatitis. Doubt pancreatitis -Patient has history of gallbladder cancer and is status post cholecystectomy. Last PET scan in 03/2017 shows no evidence of metastasis -As a result, symptoms are likely secondary to dyspepsia. Continue pantoprazole 40 mg daily -Continue with tylenol 650 mg Q4PRN, morphine 1 mg Q4PRN for pain, zofran 4 mg Q4 for nausea -Consider endoscopy outpatient. History of hypothyroidism -TSH within normal limits -Continue with home levothyroxine History of hypertension -Continue with home norvasc and cozaar Constipation -Started colace, miralax 17 gm BID History of depression -Continue with home celexa DVT prophylaxis: lovenox GI prophylaxis: protonix Patient seen and evaluated with Dr. Willingham. <Casa Willingham - Last Filed: 09/27/18 13:32> Objective - Vital Signs/Intake and Output Vital Signs (last 24 hours): Temp Pulse Resp BP Pulse Ox 97.9 F 54 L 18 148/69 94 L 09/25/18 23:49 09/26/18 14:00 09/25/18 23:49 09/26/18 13:13 09/25/18 23:49 - Labs Labs: 09/26/18 07:00 09/26/18 07:00 Attending/Attestation - Attestation I have personally seen and examined this patient.: Yes I have fully participated in the care of the patient.: Yes I have reviewed all pertinent clinical information, including history, physical exam and plan: Yes Notes (Text): 09/27/18 13:27 Attending note; patient seen and examined with resident. Patient is status post stress test. Alert and awake. Denies any chest pain, shortness of breath Denies any nausea, vomiting. Denies any abdominal pain. Tolerating soft diet. Patient had bowel movement. Patient is a 73 year old female with past medical history of gallbladder cancer, gastritis, asthma, hypertension, hyperlipidemia, hypothyroidism presented with nausea, vomiting, abdominal pain, and chest pain. Patient was admitted for ACS rule out and epigastric pain likely secondary to gastritis. 1. Chest pain; cardiac enzymes negative. Status post stress test. He has discussed with office messenger in detail. Patient will be discharged home today. 2. Abdominal discomfort ;GI evaluation appreciated. CT abdomen and pelvis is negative. 3. Constipation; continue MiraLAX and Colace. 4. Gastritis; continue Protonix and Carafate. Advised to follow-up with GI as outpatient. Patient will be discharged home today. Case discussed with patient's daughter in detail by the bedside. Case discussed with PMD in detail. Patient will follow up with Dr. Bunch upon discharge. Follow-up plan discussed. Addendum; stress test is negative.
[2018-09-25 12:38] VITALS: RESP 18
[2018-09-25 23:50] VITALS: TEMP 97.9; O2SAT 94
--- NOTE | 2018-09-26 02:23 | CON ---
DATE OF CONSULTATION: 09/25/2018 REQUESTING PHYSICIAN: Dr. Abeeb. REASON FOR CONSULTATION: Followup abdominal pain, radiating to the chest, rule out cardiac evaluation. BRIEF CLINICAL HISTORY: This is a 73-year-old female with past medical history significant for hypertension, hypothyroidism, hyperlipidemia, came in with abdominal pain, sometimes radiating to the chest. Cardiology consult was called. The patient denies any chest pain. Daughter is at the bedside. Though the patient speaks Armenian, but clearly mentions no definite history of chest pain on walking, but sometimes she gets short-winded and mild shortness of breath on exertion. Denies any palpitation. PAST MEDICAL HISTORY: Past history significant for hypertension, hyperlipidemia, hypothyroidism, history of gallbladder cancer, and liver disease. PAST SURGICAL HISTORY: Significant for cholecystectomy and bladder surgery and hysterectomy in the past. ALLERGIES: NO KNOWN DRUG ALLERGIES, THOUGH [employer]IN [employer], GETS A GI UPSET. SOCIAL HISTORY: Denies any history of alcohol abuse. FAMILY HISTORY: Noncontributory. CURRENT MEDICATIONS: The patient is taking Norvasc 5 mg daily, Lipitor 40 mg daily, Celexa 20 mg daily, 5 mg daily, Synthroid 50 mcg daily, Cozaar 100 mg daily. REVIEW OF SYSTEMS: As per HPI. PHYSICAL EXAMINATION: Height of the patient 4 feet 11 inches. The patient was 165 pounds, body mass index 32 kg/sq m. VITAL SIGNS: Temperature afebrile, heart rate 52, blood pressure 127/65. HEENT: PERRLA. Extraocular muscles intact. NECK: Supple. No carotid bruits or thyromegaly. CHEST: Clear to auscultation. HEART: S1 and S2 regular. ABDOMEN: Soft. EXTREMITIES: Clubbing and cyanosis, negative. LABORATORY DATA: Blood workup as follows. WBC 9.1, hemoglobin 12.8, hematocrit 40.5, platelet count 209. Chemistry shows sodium 140, potassium 3, chloride 102, carbon dioxide 33, anion gap of 9, BUN , creatinine 0.7. Troponin 0.01 and 0.01 two times negative. EKG shows sinus winston, heart rate 51, left axis deviation. IMPRESSION: A 73-year-old female with past medical history significant for diabetes, hypertension, hyperlipidemia, history of gallbladder cancer status post cholecystectomy, hysterectomy, admitted with abdominal pain that radiated to the chest. So far, chest pain atypical. EKG is pretty benign. So far, no evidence of acute myocardial infarction, but given the multiple history of coronary artery disease, we will get an echo and a stress test, lipid profile, TSH, hemoglobin A1c, further recommendation of the hospital, and we will follow with you. Thank you, Dr. Abebe, for providing the opportunity in taking care of the patient. Stephane De Leon MD
[2018-09-26 07:20] LABS: BASO # 0.04 {null, K/mm3} (0.0-2.0); BASO % 0.5 % (0.0-3.0); EOS # 0.2 (0.0-0.7); HEMOGLOBIN 13.3 g/dL (12.0-16.0); LYMPH # 2.7 (1.2-3.4); LYMPH % 35.8 % (22.0-35.0); MEAN CELL VOLUME 95.6 fl (80.0-105.0); MEAN CORPUSCULAR HEMOGLOBIN 30.6 pg (25.0-35.0); MEAN PLATELET VOLUME 11.4 fl (7.0-11.0); MONO # 0.8 (0.1-0.6); RBC 4.34 {null, 10^6/uL} (3.5-6.1); RED CELL DISTRIBUTION WIDTH 13.7 % (11.5-14.5); WHITE BLOOD COUNT 7.6 {null, 10^3/uL} (4.5-11.0)
[2018-09-26 07:44] LABS: ALB/GLOB RATIO 1.3 (1.1-1.8); ALBUMIN 3.8 g/dL (3.0-4.8); ALT/SGPT 38 U/L (7-56); AST/SGOT 35 U/L (14-36); BLOOD UREA NITROGEN 7 mg/dL (7-21); CALCIUM 8.1 mg/dL (8.4-10.5); GFR NON-AFRICAN AMERICAN > 60
[2018-09-26] MEDS: Levothyroxine 50 MCG TAB PO SCH (08:30)
[2018-09-26] MEDS ORDERED: Bisacodyl 5mg EC Tab PO ONE (09:15)
--- NOTE | 2018-09-26 09:20 | CP.PCM.PN ---
Subjective - Date & Time of Evaluation Date of Evaluation: 09/26/18 Time of Evaluation: 09:17 - Subjective Subjective: Froy Goel, PGY-1, Internal Medicine Progress Note for Dr. Willingham Patient seen and evaluated at bedside. Patient had no acute overnight events. Patient had 3 bowel movements yesterday. She continues to complain of diffuse abdominal pain and nausea, but denies any episodes of vomiting. Patient denies chest pain or right arm pain today. 12-point ROS was unremarkable except for what was mentioned above. Objective - Vital Signs/Intake and Output Vital Signs (last 24 hours): Temp Pulse Resp BP Pulse Ox 97.9 F 48 L 18 117/57 L 94 L 09/25/18 23:49 09/26/18 02:00 09/25/18 23:49 09/25/18 23:49 09/25/18 23:49 Intake and Output: 09/26/18 09/26/18 06:59 18:59 Intake Total 360 Output Total 3 Balance 357 - Medications Medications: Current Medications Acetaminophen (Tylenol 325mg Tab) 650 mg PO Q4 PRN PRN Reason: Fever >100.4 F Amlodipine Besylate (Norvasc) 5 mg PO DAILY [facility] Last Admin: 09/25/18 09:23 Dose: 5 mg Atorvastatin Calcium (Lipitor) 40 mg PO DAILY [facility] Last Admin: 09/25/18 09:23 Dose: 40 mg Bisacodyl (Dulcolax) 5 mg PO ONCE ONE Stop: 09/26/18 09:16 Citalopram Hydrobromide (Celexa) 20 mg PO DAILY [facility] Last Admin: 09/25/18 09:25 Dose: 20 mg Docusate Sodium (Colace) 100 mg PO DAILY [facility] Last Admin: 09/25/18 11:40 Dose: Not Given Enoxaparin Sodium (Lovenox) 40 mg SC DAILY [facility]; Protocol Last Admin: 09/25/18 09:22 Dose: 40 mg Sodium Chloride (Sodium Chloride 0.9%) 500 mls @ 60 mls/hr IV .Q8H20M [facility] Last Admin: 09/25/18 13:32 Dose: Not Given Levothyroxine Sodium (Synthroid) 50 mcg PO ACB [facility] Last Admin: 09/26/18 08:30 Dose: 50 mcg Losartan Potassium (Cozaar) 100 mg PO DAILY [facility] Last Admin: 09/25/18 09:24 Dose: 100 mg Ondansetron HCl (Zofran Inj) 4 mg IVP Q4H PRN PRN Reason: Nausea/Vomiting Last Admin: 09/25/18 09:39 Dose: 4 mg Pantoprazole Sodium (Protonix Inj) 40 mg IVP DAILY [facility] Last Admin: 09/25/18 09:22 Dose: 40 mg Polyethylene Glycol (Miralax) 17 gm PO BID [facility] Last Admin: 09/25/18 17:04 Dose: Not Given - Labs Labs: 09/26/18 07:00 09/26/18 07:00 - Constitutional Appears: Well, Non-toxic, No Acute Distress - Head Exam Head Exam: ATRAUMATIC, NORMAL INSPECTION, NORMOCEPHALIC - Eye Exam Eye Exam: EOMI, PERRL - ENT Exam ENT Exam: Mucous Membranes Moist - Neck Exam Neck Exam: Full ROM, Normal Inspection - Respiratory Exam Respiratory Exam: Clear to Ausculation Bilateral, NORMAL BREATHING PATTERN - Cardiovascular Exam Cardiovascular Exam: REGULAR RHYTHM, RRR, +S1, +S2. absent: Clicks, Gallop, Rubs - GI/Abdominal Exam GI & Abdominal Exam: Soft, Tenderness (diffuse), Normal Bowel Sounds. absent: Distended, Firm, Guarding - Extremities Exam Extremities Exam: Full ROM, Normal Capillary Refill, Normal Inspection - Neurological Exam Neurological Exam: Alert, Awake, CN II-XII Intact, Oriented x3 - Skin Skin Exam: Dry, Intact, Normal Color Assessment and Plan - Assessment and Plan (Free Text) Assessment: 73 year old female with past medical history of gallbladder cancer, gastritis, asthma, hypertension, hyperlipidemia, hypothyroidism presented with nausea, vomiting, abdominal pain, and chest pain. Patient was admitted for ACS rule out and epigastric pain likely secondary to gastritis Plan: Chest pain with ACS rule out -EKGx2: sinus bradycardia with heart rate of 49 on repeat EKG. Patient had sinus rhythm with heart rate of 66 on prior admission -Troponinx3: 0.02,0.01,0.02 -Last stress test in 2013 showed no ischemia -Lipid profile within normal limits -HgbA1c: 6.6 -TSH: 1.47 -Hold ASA secondary to allergy -Continue with lipitor, cozaar -Echocardiogram ordered for mildly elevated BNP. Will follow up results -Patient scheduled for stress test to rule out ischemia Abdominal pain 2/2 to likely gastritis -CT Abdomen and Pelvis 09/24: shows mild edema around pelvis -Patient is afebrile and has no leukocytosis -Lipase unremarkable -No lactic acidosis present. -Patient does not fulfill 2 of 3 criteria for pancreatitis. Doubt pancreatitis -Patient has history of gallbladder cancer and is status post cholecystectomy. Last PET scan in 03/2017 shows no evidence of metastasis -As a result, symptoms are likely secondary to dyspepsia. -Increased protonix to twice a day -Started carafate BID -Continue with tylenol 650 mg Q4PRN, zofran 4 mg Q4 for nausea -Consider endoscopy outpatient -GI, Dr. Berry, consulted for further recommendations. History of hypothyroidism -TSH within normal limits -Continue with home levothyroxine History of hypertension -Continue with home norvasc and cozaar Constipation -Continue colace, miralax 17 gm BID -Patient has now had bowel movements. History of depression -Continue with home celexa DVT prophylaxis: lovenox GI prophylaxis: protonix Patient seen and evaluated with Dr. Willingham.
[2018-09-26] MEDS: POLYETHYLENE GLYCOL 3350 17 GM/Dose PACKET PO SCH (09:31)
[2018-09-26] MEDS ORDERED: Aminophylline 25 mg/ml Inj ONE (09:39)
--- NOTE | 2018-09-26 11:33 | PN ---
DATE: 09/26/2018 REASON FOR CONSULTATION AND FOLLOWUP: Abdominal pain radiating to the chest, cardiac evaluation. SUBJECTIVE: The patient's daughter and son is at bedside. Denies any chest pain, denies any shortness of breath, denies any palpitations, but complains of abdominal pain, on morphine for abdominal pain. The patient is n.p.o. for stress test today. PHYSICAL EXAMINATION: VITAL SIGNS: Temperature afebrile, heart rate 53, blood pressure 117/50. HEENT: PERRLA. Extraocular muscles intact. NECK: Supple. No carotid bruits or thyromegaly. CHEST: Clear to auscultation. HEART: S1, S2. Regular. ABDOMEN: Soft. EXTREMITIES: Clubbing, cyanosis negative. LABORATORY DATA: Blood workup as follows. WBC 7.3, hemoglobin 13, hematocrit 41.5, platelet count 214. Chemistry shows sodium 130, potassium 3, chloride 102, carbon dioxide 30, anion gap of 10, BUN 7, creatinine 0.7. Troponin 0.01 x3, negative. No evidence of acute CA. EKG shows mild sinus bradycardia; otherwise no evidence of acute CA. IMPRESSION: A 73-year-old female with past medical history significant for gallbladder cancer, status post cholecystectomy, history of hypertension, admitted with abdominal pain. Not sure where the chest pain comes from, but the patient denies any chest pain, but the patient admitted with chest pain diagnosis, having multiple history of coronary artery disease, suggest echo and a stress test today. The patient is awaiting to get stress test today. After that, if the patient remains stable, possibly discharge home and consider gastrointestinal workup. We will follow with you. So far, no evidence of acute myocardial infarction. TSH is in the normal limits. LDL 60, HDL 73. Thank you, Dr. Abebe, for providing the opportunity in taking care of the patient, Lexie Chacon. Stephane De Leon MD
--- NOTE | 2018-09-26 12:36 | CARD ---
APPROVED REPORT Date of service: 09/26/2018 EXAM: Two-dimensional and M-mode echocardiogram with Doppler and color Doppler. INDICATION Chest Pain LVFX 2D DIMENSIONS Left Atrium (2D)4.4 (1.6-4.0cm)IVSd1.0 (0.7-1.1cm) LVDd4.2 (3.9-5.9cm)PWd1.1 (0.7-1.1cm) LVDs3.0 (2.5-4.0cm)FS (%) 28.8 % LVEF (%)55.7 (>50%) M-Mode DIMENSIONS Aortic Root2.90 (2.2-3.7cm)Aortic Cusp Exc.1.60 (1.5-2.0cm) Aortic Valve AoV Peak Kdtszjxx678.0cm/Rebecca Peak GR.13mmHg Mitral Valve MV E Mlrzmjgr93.7cm/sMV A Zebhknyq43.9cm/sE/A ratio1.2 TDI Lateral E' Peak V6.82cm/sMedial E' Peak V4.19cm/sE/Lateral E'14.6 E/Medial E'23.8 Pulmonary Valve PV Peak Nouyagco17.7cm/sPV Peak Grad.1mmHg Tricuspid Valve TR Peak Fvduzwhl934jj/sRAP VYOROAVL77ucIvKE Peak Gr.58mmHg [id number] LEFT VENTRICLE The left ventricle is normal size. There is normal left ventricular wall thickness. The left ventricular function is normal.EF-55-60% There is normal LV segmental wall motion. Transmitral Doppler flow pattern is Grade II-pseudonormal filling dynamics. No left ventricle thrombus noted on this study. There is no ventricular septal defect visualized. There is no left ventricular aneurysm. There is no mass noted in the left ventricle. RIGHT VENTRICLE The right ventricle is mildly to moderately dilated. The right ventricle is borderline hypertrophied. Systolic function of RV s borderline reduced. ATRIA The left atrium is moderately dilated. The right atrium is moderately dilated. The interatrial septum is intact with no evidence for an atrial septal defect. AORTIC VALVE The aortic valve is thickened but opens well. There is trace aortic regurgitation. There is no aortic valvular stenosis. There is no aortic valvular vegetation. MITRAL VALVE The mitral valve is thickened but opens well. 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 There is no mitral valve stenosis. There is no evidence of mitral valve prolapse. TRICUSPID VALVE The tricuspid valve leaflets are thickened , but open well. There is moderate to severe tricuspid regurgitation.RVSP-68 mmof Hg. There is moderate to severe pulmonary hypertension. There is no tricuspid valve stenosis. There is no tricuspid valve prolapse or vegetation. PULMONIC VALVE The pulmonary valve is normal in structure. There is trace pulmonic valvular regurgitation. There is no pulmonic valvular stenosis. GREAT VESSELS The aortic root is normal in size. The ascending aorta is normal in size. The pulmonary artery is normal. The IVC is normal in size and collapses >50% with inspiration. PERICARDIAL EFFUSION There is no pleural effusion. There is a trace pericardial effusion. <Conclusion> The left ventricle is normal size. There is normal left ventricular wall thickness. The left ventricular function is normal.EF-55-60% The right ventricle is mildly to moderately dilated. Systolic function of RV s borderline reduced. There is trace aortic regurgitation. Mitral regurgitation is moderate. There is moderate to severe tricuspid regurgitation.RVSP-68 mmof Hg. There is moderate to severe pulmonary hypertension. There is trace pulmonic valvular regurgitation. The IVC is normal in size and collapses >50% with inspiration. There is a trace pericardial effusion. No thrombus or vegetation noted.
[2018-09-26] MEDS: Enoxaparin 40 mg Syringe SC SCH (13:12)
[2018-09-26 13:14] VITALS: BP 148/69
--- NOTE | 2018-09-26 13:32 | CP.PCM.DIS ---
<LawsonmarianneNicole edwardslizzie - Last Filed: 09/26/18 14:59> Provider - Provider Date of Admission: 09/24/18 19:17 Attending physician: Casa Willingham MD Consults: 09/24/18 21:16 Cardiology Consult Routine Comment: Consulting Provider: Stephane Guerra Consulting Physician: Stephane Guerra Reason for Consult: chest pain 09/25/18 02:26 Transition In Care/Readmission Reduction Routine Comment: Physician Instructions: Reason For Exam: admission assessment 09/25/18 02:27 Social Work Referral Routine Comment: admission assessment Physician Instructions: Reason For Exam: cata score 10 09/26/18 09:16 Gastroenterology Consult Routine Comment: Consulting Provider: Wiliam Berry Consulting Physician: Wiliam Berry Reason for Consult: constant abdominal pain, even with resolved constipation Time Spent in preparation of Discharge (in minutes): 60 Hospital Course - Lab Results Lab Results: Most Recent Lab Values WBC 7.6 10^3/uL (4.5-11.0) 09/26/18 07:00 RBC 4.34 10^6/uL (3.5-6.1) 09/26/18 07:00 Hgb 13.3 g/dL (12.0-16.0) 09/26/18 07:00 Hct 41.5 % (36.0-48.0) 09/26/18 07:00 MCV 95.6 fl (80.0-105.0) 09/26/18 07:00 MCH 30.6 pg (25.0-35.0) 09/26/18 07:00 MCHC 32.0 g/dl (31.0-37.0) 09/26/18 07:00 RDW 13.7 % (11.5-14.5) 09/26/18 07:00 Plt Count 214 10^3/uL (120.0-450.0) 09/26/18 07:00 MPV 11.4 fl (7.0-11.0) H 09/26/18 07:00 Neut % (Auto) 51.7 % (50.0-68.0) 09/26/18 07:00 Lymph % (Auto) 35.8 % (22.0-35.0) H 09/26/18 07:00 [place] % (Auto) 10.0 % (1.0-6.0) H 09/26/18 07:00 Eos % (Auto) 2.0 % (1.5-5.0) 09/26/18 07:00 Baso % (Auto) 0.5 % (0.0-3.0) 09/26/18 07:00 Lymph # (Auto) 2.7 (1.2-3.4) 09/26/18 07:00 [place] # (Auto) 0.8 (0.1-0.6) H 09/26/18 07:00 Eos # (Auto) 0.2 (0.0-0.7) 09/26/18 07:00 Baso # (Auto) 0.04 K/mm3 (0.0-2.0) 09/26/18 07:00 Absolute Neuts (auto) 3.92 (1.4-6.5) 09/26/18 07:00 Sodium 138 mmol/L (132-148) 09/26/18 07:00 Potassium 3.8 mmol/L (3.6-5.0) 09/26/18 07:00 Chloride 102 mmol/L (98-107) 09/26/18 07:00 Carbon Dioxide 30 mmol/L (21-33) 09/26/18 07:00 Anion Gap 10 (10-20) 09/26/18 07:00 BUN 7 mg/dL (7-21) 09/26/18 07:00 Creatinine 0.7 mg/dl (0.7-1.2) 09/26/18 07:00 Est GFR ( Amer) > 60 09/26/18 07:00 Est GFR (Non-Af Amer) > 60 09/26/18 07:00 Random Glucose 81 mg/dL (70-110) 09/26/18 07:00 Hemoglobin A1c 6.6 % (4.2-6.5) H 09/24/18 17:00 Calcium 8.1 mg/dL (8.4-10.5) L 09/26/18 07:00 Total Bilirubin 0.5 mg/dL (0.2-1.3) 09/26/18 07:00 AST 35 U/L (14-36) 09/26/18 07:00 ALT 38 U/L (7-56) 09/26/18 07:00 Alkaline Phosphatase 67 U/L (38-126) 09/26/18 07:00 Lactate Dehydrogenase 708 U/L (333-699) H 09/24/18 17:00 Total Creatine Kinase 45 U/L (35-230) 09/24/18 17:00 Troponin I 0.02 ng/mL D 09/25/18 06:30 NT-Pro-B Natriuret Pep 692 pg/mL (0-450) H 09/24/18 17:00 Total Protein 6.8 g/dL (5.8-8.3) 09/26/18 07:00 Albumin 3.8 g/dL (3.0-4.8) 09/26/18 07:00 Globulin 3.0 gm/dL 09/26/18 07:00 Albumin/Globulin Ratio 1.3 (1.1-1.8) 09/26/18 07:00 Triglycerides 102 mg/dL (35-160) 09/24/18 17:00 Cholesterol 154 mg/dL (130-200) 09/24/18 17:00 LDL Cholesterol Direct 60 mg/dL (0-129) 09/24/18 17:00 HDL Cholesterol 73 mg/dL (29-60) H 09/24/18 17:00 Lipase 177 U/L (23-300) 09/24/18 17:00 TSH 3rd Generation 1.47 mIU/mL (0.46-4.68) 09/24/18 17:00 Urine Color Yellow (YELLOW) 09/24/18 17:00 Urine Appearance Clear (CLEAR) 09/24/18 17:00 Urine pH 8.5 (4.7-8.0) 09/24/18 17:00 Ur Specific [place] 1.015 (1.005-1.035) 09/24/18 17:00 Urine Protein Negative mg/dL (<30 mg/dL) 09/24/18 17:00 Urine Glucose (UA) Negative mg/dL (NEGATIVE) 09/24/18 17:00 Urine Ketones Negative mg/dL (NEGATIVE) 09/24/18 17:00 Urine Blood Negative (NEGATIVE) 09/24/18 17:00 Urine Nitrate Negative (NEGATIVE) 09/24/18 17:00 Urine Bilirubin Negative (NEGATIVE) 09/24/18 17:00 Urine Urobilinogen 0.2 E.U./dL (<1 E.U./dL) 09/24/18 17:00 Ur Leukocyte Esterase Negative Nella/uL (NEGATIVE) 09/24/18 17:00 - Hospital Course Hospital Course: Froy Goel, PGY-1, Internal Medicine Discharge Summary for Dr. Willingham 73 year old female with past medical history of gallbladder CA, Asthma, HTN, HLD, Hypothyroid presented with nausea, vomiting, abdominal pain, and chest pain. Patient's symptoms began 3 day prior to presentation. She had increasing number of episodes of vomiting through those three days with 10 episodes of NBNB vomiting the day prior to presentation. Patient reported sharp stabbing pain which came and went lasting approximately two hours. She denies these symptoms were associated with eating, but had a decreased appetite. Her chest pain was on the right side of her chest with radiation into the right arm and neck. Pain was worse with walking and improved with sitting. She felt fatigued throughout the day. Upon admission, EKG was performed for chest pain to rule out ACS. EKG both times showed sinus bradycardia with left axis deviation. Troponinx3 was 0.02, 0.01, and 0.02. HgbA1c was 6.6. TSH was unremarkable. Lipid panel was unremarkable. Patient was started on home lipitor but aspirin was not started due to allergy. Patient was given acetaminophen and morphine for pain which helped alleviate the chest pain. Echocardiogram was performed for mildly elevated BNP and showed LVEF of 55-60%, trace AR, moderate to severe TR with RVSP of 68, moderate to severe pulm HTN, trace OH, trace pericardial effusion. No thrombus or vegetation was seen. Preliminary stress test results showed no signs of ischemia. For patient's abdominal pain, patient has had abdominal pain throughout the admission unchanged in intensity. Patient has also been nauseous but has not had any more episodes of vomiting. Patient was initially constipated but had 3 episodes of bowel movements on 09/25 after given colace and miralax. Abdominal CT on [place] was done which only showed fluid around the pelvis but no acute intraabdominal abnormalities. Patient was initially started on protonix 40 mg daily which was increased to 40 mg IV BID and started on sucralfate with some improvement in abdominal pain. Patient was found to be stable and ready for discharge. Patient was told to follow up with PCP in 3-5 days. Patient was told have PCP refer her to business functional analyst for further evaluation of abdominal pain. Patient was told to take all home medications as prescribed. Patient was told that formal stress test results would be given to her outpatient. Patient was told to take newly prescribed protonix 40 mg daily and sulcralfate 1 gm twice a day. Patient was told to return to the emergency department if you have any new or concerning s ymptoms. Discharge Diagnoses Chest pain with ACS rule out Abdominal pain History of hypothyroidism History of hypertension Constipation Depression - Date & Time of H&P Date of H&P: 09/24/18 Time of H&P: 20:10 Discharge Exam - Head Exam Head Exam: ATRAUMATIC, NORMAL INSPECTION, NORMOCEPHALIC - Eye Exam Eye Exam: EOMI, PERRL - ENT Exam ENT Exam: Mucous Membranes Moist - Respiratory Exam Respiratory Exam: Clear to PA & Lateral, NORMAL BREATHING PATTERN. absent: Rales, Rhonchi, Wheezes - Cardiovascular Exam Cardiovascular Exam: REGULAR RHYTHM, RRR, +S1, +S2. absent: Clicks, Gallop, Rubs - GI/Abdominal Exam GI & Abdominal Exam: Normal Bowel Sounds, Soft, Tenderness (diffuse but centered around epigastric area). absent: Distended, Firm, Guarding - Extremities Exam Extremities exam: full ROM, normal capillary refill, normal inspection - Neurological Exam Neurological exam: Alert, CN II-XII Intact, Normal Gait, Oriented x3 - Psychiatric Exam Psychiatric exam: Normal Affect, Normal Mood - Skin Skin Exam: Dry, Intact, Normal Color Discharge Plan - Discharge Medications Prescriptions: Omeprazole 40 mg PO DAILY 30 Days #30 capsule. Sucralfate [Carafate Oral Susp] 1 gm PO 0600,1600 30 Days #60 udc - Follow Up Plan Condition: FAIR Disposition: HOME/ ROUTINE Instructions: Acute Abdomen (Belly Pain), Adult (DC), Chest Pain (DC) Additional Instructions: 1. Please follow up with your PCP within 3-5 days. Please have your PCP refer you to a business functional analyst for further work up of your abdominal pain outpatient. 2. Please take all home medications as prescribed. 3. Please take newly prescribed protonix 40 mg daily and sulcralfate 1 gm twice a day. 4. You will receive your stress test results outpatient. 4. Please return to the emergency department if you have any new or concerning symptoms. <Casa Willingham - Last Filed: 09/27/18 13:33> Provider - Provider Date of Admission: 09/24/18 19:17 Attending physician: Casa Willingham MD Consults: 09/24/18 21:16 Cardiology Consult Routine Comment: Consulting Provider: Stephane Guerra Consulting Physician: Stephane Guerra Reason for Consult: chest pain 09/25/18 02:26 Transition In Care/Readmission Reduction Routine Comment: Physician Instructions: Reason For Exam: admission assessment 09/25/18 02:27 Social Work Referral Routine Comment: admission assessment Physician Instructions: Reason For Exam: cata score 10 09/26/18 09:16 Gastroenterology Consult Routine Comment: Consulting Provider: Wiliam Berry Consulting Physician: Wiliam Berry Reason for Consult: constant abdominal pain, even with resolved constipation Hospital Course - Lab Results Lab Results: Most Recent Lab Values WBC 7.6 10^3/uL (4.5-11.0) 09/26/18 07:00 RBC 4.34 10^6/uL (3.5-6.1) 09/26/18 07:00 Hgb 13.3 g/dL (12.0-16.0) 09/26/18 07:00 Hct 41.5 % (36.0-48.0) 09/26/18 07:00 MCV 95.6 fl (80.0-105.0) 09/26/18 07:00 MCH 30.6 pg (25.0-35.0) 09/26/18 07:00 MCHC 32.0 g/dl (31.0-37.0) 09/26/18 07:00 RDW 13.7 % (11.5-14.5) 09/26/18 07:00 Plt Count 214 10^3/uL (120.0-450.0) 09/26/18 07:00 MPV 11.4 fl (7.0-11.0) H 09/26/18 07:00 Neut % (Auto) 51.7 % (50.0-68.0) 09/26/18 07:00 Lymph % (Auto) 35.8 % (22.0-35.0) H 09/26/18 07:00 [place] % (Auto) 10.0 % (1.0-6.0) H 09/26/18 07:00 Eos % (Auto) 2.0 % (1.5-5.0) 09/26/18 07:00 Baso % (Auto) 0.5 % (0.0-3.0) 09/26/18 07:00 Lymph # (Auto) 2.7 (1.2-3.4) 09/26/18 07:00 [place] # (Auto) 0.8 (0.1-0.6) H 09/26/18 07:00 Eos # (Auto) 0.2 (0.0-0.7) 09/26/18 07:00 Baso # (Auto) 0.04 K/mm3 (0.0-2.0) 09/26/18 07:00 Absolute Neuts (auto) 3.92 (1.4-6.5) 09/26/18 07:00 Sodium 138 mmol/L (132-148) 09/26/18 07:00 Potassium 3.8 mmol/L (3.6-5.0) 09/26/18 07:00 Chloride 102 mmol/L (98-107) 09/26/18 07:00 Carbon Dioxide 30 mmol/L (21-33) 09/26/18 07:00 Anion Gap 10 (10-20) 09/26/18 07:00 BUN 7 mg/dL (7-21) 09/26/18 07:00 Creatinine 0.7 mg/dl (0.7-1.2) 09/26/18 07:00 Est GFR ( Amer) > 60 09/26/18 07:00 Est GFR (Non-Af Amer) > 60 09/26/18 07:00 Random Glucose 81 mg/dL (70-110) 09/26/18 07:00 Hemoglobin A1c 6.6 % (4.2-6.5) H 09/24/18 17:00 Calcium 8.1 mg/dL (8.4-10.5) L 09/26/18 07:00 Total Bilirubin 0.5 mg/dL (0.2-1.3) 09/26/18 07:00 AST 35 U/L (14-36) 09/26/18 07:00 ALT 38 U/L (7-56) 09/26/18 07:00 Alkaline Phosphatase 67 U/L (38-126) 09/26/18 07:00 Lactate Dehydrogenase 708 U/L (333-699) H 09/24/18 17:00 Total Creatine Kinase 45 U/L (35-230) 09/24/18 17:00 Troponin I 0.02 ng/mL D 09/25/18 06:30 NT-Pro-B Natriuret Pep 692 pg/mL (0-450) H 09/24/18 17:00 Total Protein 6.8 g/dL (5.8-8.3) 09/26/18 07:00 Albumin 3.8 g/dL (3.0-4.8) 09/26/18 07:00 Globulin 3.0 gm/dL 09/26/18 07:00 Albumin/Globulin Ratio 1.3 (1.1-1.8) 09/26/18 07:00 Triglycerides 102 mg/dL (35-160) 09/24/18 17:00 Cholesterol 154 mg/dL (130-200) 09/24/18 17:00 LDL Cholesterol Direct 60 mg/dL (0-129) 09/24/18 17:00 HDL Cholesterol 73 mg/dL (29-60) H 09/24/18 17:00 Lipase 177 U/L (23-300) 09/24/18 17:00 TSH 3rd Generation 1.47 mIU/mL (0.46-4.68) 09/24/18 17:00 Urine Color Yellow (YELLOW) 09/24/18 17:00 Urine Appearance Clear (CLEAR) 09/24/18 17:00 Urine pH 8.5 (4.7-8.0) 09/24/18 17:00 Ur Specific [place] 1.015 (1.005-1.035) 09/24/18 17:00 Urine Protein Negative mg/dL (<30 mg/dL) 09/24/18 17:00 Urine Glucose (UA) Negative mg/dL (NEGATIVE) 09/24/18 17:00 Urine Ketones Negative mg/dL (NEGATIVE) 09/24/18 17:00 Urine Blood Negative (NEGATIVE) 09/24/18 17:00 Urine Nitrate Negative (NEGATIVE) 09/24/18 17:00 Urine Bilirubin Negative (NEGATIVE) 09/24/18 17:00 Urine Urobilinogen 0.2 E.U./dL (<1 E.U./dL) 09/24/18 17:00 Ur Leukocyte Esterase Negative Nella/uL (NEGATIVE) 09/24/18 17:00 Attending/Attestation - Attestation I have personally seen and examined this patient.: Yes I have fully participated in the care of the patient.: Yes I have reviewed all pertinent clinical information, including history, physical exam and plan: Yes Notes (Text): Attending note; patient seen and examined with resident. Patient is status post stress test. Alert and awake. Denies any chest pain, shortness of breath Denies any nausea, vomiting. Denies any abdominal pain. Tolerating soft diet. Patient had bowel movement. Patient is a 73 year old female with past medical history of gallbladder cancer, gastritis, asthma, hypertension, hyperlipidemia, hypothyroidism presented with nausea, vomiting, abdominal pain, and chest pain. Patient was admitted for ACS rule out and epigastric pain likely secondary to gastritis. 1. Chest pain; cardiac enzymes negative. Status post stress test. He has discussed with redevelopment specialist in detail. Patient will be discharged home today. 2. Abdominal discomfort ;GI evaluation appreciated. CT abdomen and pelvis is negative. 3. Constipation; continue MiraLAX and Colace. 4. Gastritis; continue Protonix and Carafate. Advised to follow-up with GI as outpatient. Patient will be discharged home today. Case discussed with patient's daughter in detail by the bedside. Case discussed with PMD in detail. Patient will follow up with Dr. Bunch upon discharge. Follow-up plan discussed. Addendum; stress test is negative.
[2018-09-26] MEDS ORDERED: Sucralfate 1 gm/10 ml Oral Susp UD PO SCH (16:00)
[2018-09-26 18:42] VITALS: PULSE 54
--- NOTE | 2018-09-26 22:56 | CON ---
DATE: 09/26/2018 HISTORY OF PRESENT ILLNESS: I saw Ms. Chacon this morning. She is a 73-year-old female who speaks no French at all, admitted with complaints of abdominal and chest pain, which radiated to the right arm and right side of the neck. She denied hematemesis or rectal bleeding. She said the discomfort was going on for at least a week. She also noted that there was nausea and vomiting associated with upper abdominal pain as well. Note that the patient does not follow antireflux precautions. She drinks large volumes of fluid both before bedtime as well as during the evening when she is sleeping. The patient also noted some transient discomfort that lasts a few minutes, which occurs in the area of the left lower quadrant. This is relieved after a bowel movement. PAST MEDICAL HISTORY: Significant for asthma. The patient's EKG was significant for just sinus bradycardia, left axis and a conduction delay on admission. A recent echocardiogram was performed by Dr. De Leon and his progress note was reviewed. PHYSICAL EXAMINATION VITAL SIGNS: Reviewed. HEENT: Noncontributory. LUNGS: Decreased breath sounds basilar. HEART: Irregular rhythm. ABDOMEN: Soft, tender in the epigastric area. She has very mild discomfort noted in the left lower quadrant and stool is palpated in the left paraumbilical area. LABORATORY DATA: I reviewed the CT report as well as the images. The CT was noncontributory for a GI etiology of her pain. She has laboratories that indicate the hematology is noncontributory as well as the chemistry. ASSESSMENT: This is a 73-year-old female who was admitted with complaints of epigastric pain and nausea, some discomfort in the chest radiating up to the neck, not associated with hematemesis or rectal bleeding. Note as I indicated before, the patient does not follow antireflux precautions, drinks a large volume of fluid before bedtime. Note that I reviewed the issue of antireflux precautions with both the patient and her daughter at the bedside, but the patient was and appeared to be somewhat resistant to the suggestion. Note that the patient is on pantoprazole as well as Carafate. Note that in her particular case based on history, she most likely has either gastritis or some degree of esophagitis. At this point in time, I think the proton-pump inhibitor trial is adequate. No need for an upper endoscopy at this particular time point. Note that she is being followed by Dr. De Leon who will schedule her for a stress test as his schedule permits. At the current time point, would continue her on her current medications and again antireflux precautions were emphasized to the patient and the patient's daughter. Regarding the lower abdominal pain, nothing contributory on a CT scan, but she does have stool palpated by exam in the left paraumbilical area in the left lower quadrant. She had no idea what she was taking for bowel prophylaxis, but I suggested MiraLax and Colace with generic equivalent of Colace to the patient and the patient's daughter. Wiliam Berry DO, PhD MTDD
--- NOTE | 2018-09-26 23:44 | CARD ---
APPROVED REPORT Date of service: 09/26/2018 Protocol: LEXISCAN Test Type: Lexiscan Sestamibi Stress Test Attending Physician: Dr. Stephane Guerra Referring Physician: Dr. Casa Willingham Test Indications: Chest Pain Height:4 ft 7 in Weight:165lbs Medications: Tylenol, Norvasc, Lipitor, Celexa Colace, Lovenox, Synthroid, Losartan Morphine, Zofran, Miralax, Aricept Medical History: 73 year old female with a history of HTN, high cholesterol, hypothyroid,GERD, arthritis, bipolar disorder, anemia Target HR: 146 bpm Resting ECG: RSR. IVCD. Resting Heart Rate: 52 bpm Resting Blood Pressure: 122/70mmHg Submaximum (85%): 124 bpm PROCEDURE Pharmacologic stress testing was performed using 0.4mg per 5ml of regadenoson given intravenously over 7-10 seconds. Reversal agent aminophyline 100 mg, given intravenously for Nausea. POST EXERCISE Reason for Termination: Protocol completed Target HR: No Max HR: 51 bpm 43% of Maximum Predicted HR: 146 bpm Exercise duration: 00:31 min:sec, 0 Stage Exercise capacity: 1.0METs Max Blood Pressure: 122/70mmHg Blood Pressure response to exercise: normal resting BP - appropriate response Heart Rate response to exercise: appropriate Chest Pain: Yes, Mild Pressure like Chest Pain. Angina index: 0 Arrhythmia: No, none ST Change: No, none Deviation: 0 mm INTERPRETATION Stress EKG Conclusion: IV LEXISCAN NUCLEAR STRESS TEST DURNG WHICH PATIENT FELT SLIGHT PRESSURE LIKE CHEST PAIN. NO ST-T CHANGES SEEN. NUCLEAR SCAN REPORT PENDING. Signed by Stephane Guerra Electronically Approved: 09/26/2018 12:27:29 EXAM: Myocardial Perfusion REST/STRESS Stress Test Type: Pharmacologic Imaging Protocol The imaging protocol used to acquire images was Rest Tc-99m/stress Tc-99m 1 day Rest Spect myocardial perfusion imaging was performed in supine position 50 minutes following the injection of 10.4 mCi of Tc-99 Myoview. At peak stress, the patient was injected intravenously with 30.4mCi of Tc-99 tetrofosmin after an infusion time of 0 minutes and 10 seconds. Gated Stress Spect was performed 65 minutes after intravenous Tc-99 Myoview injection. The images were gated to evaluate regional wall motion and calculate ventricular ejection fraction.Images were reconstructed using backfilter projection method in short horizontal and verticle long axis. Spect slices were generated. LV Perfusion The quality of the study is good. The left ventricle is normal in size. The right ventricle is unremarkable. The lung uptake is normal. The distribution of tracer reveals mildly and diffusely decreased perfusion involving mid to distal anterior wall on the stress study. The remainder of the LV myocardium is unremarkable. The rest myocardial perfusion study shows no significant change. Wall Motion Wall motion study shows good contractility of the left ventricle. LVEF = 77%. Conclusion 1. Essentially normal SPECT myocardial perfusion study. 2. Fixed, anterior defect is most likely due to breast attenuation. 3. Normal gated wall motion of the left ventricle.
== END 2018-09-26 17:39 | disposition home or self-care (01) ==
LOC: ED 15:42 → ERH 19:17 → 2RSO 20:53
PROVIDERS: ADMIT Internal Medicine; ATTEND Internal Medicine
DX: K29.70 Gastritis, unspecified, without bleeding (principal); R07.89 Other chest pain; R11.2 Nausea with vomiting, unspecified; E03.9 Hypothyroidism, unspecified; E11.9 Type 2 diabetes mellitus without complications; I10 Essential (primary) hypertension; E78.5 Hyperlipidemia, unspecified; F32.9 Major depressive disorder, single episode, unspecified; I25.10 Atherosclerotic heart disease of native coronary artery without angina pectoris; K59.00 Constipation, unspecified; J45.909 Unspecified asthma, uncomplicated; Z85.09 Personal history of malignant neoplasm of other digestive organs
CPT/HCPCS: 36415; 71045; 74177; 78452; 80053; 80061; 81003; 82550; 83036; 83615; 83690; 83880; 84443; 84484; 85025; 93005; 93017; 93306; 96374; 99285; A9502; C9113; G0378; J0280; J1650; J2270; J2405; J2785; J7030; J7040; Q9967